=== PATIENT | female | born 1935 | race Caucasian/White ===

== ENCOUNTER 2019-04-19 15:51 | Inpatient (IN) | payer MEDICARE ==
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
[2019-04-19 16:49] LABS: URINE SOURCE CLEAN C
[2019-04-19 16:56] LABS: URINE BILIRUBIN NEGATIVE (NEGATIVE); URINE BLOOD TRACE (NEGATIVE); URINE GLUCOSE (UA) NEGATIVE (NEGATIVE); URINE KETONE NEGATIVE (NEGATIVE); URINE LEUKOCYTE ESTERASE SMALL (NEGATIVE); URINE MICROSCOPIC INDICATED? YES; URINE NITRATE NEGATIVE (NEGATIVE); URINE PROTEIN NEGATIVE (NEGATIVE); URINE UROBILINOGEN 0.2 E.U./dL (0.2 - 1.0)
[2019-04-19 17:10] LABS: ALB/GLOB RATIO 1.2 (1.0-1.8); ALKALINE PHOSPHATASE 56 U/L (34-104); ANION GAP 12.3 (7.0-16.0); BILIRUBIN,TOTAL 0.3 mg/dL (0.3-1.0); BUN - UREA NITROGEN 19 mg/dL (7-25); CARBON DIOXIDE 23.8 mEq/L (21.0-31.0); CHLORIDE 104 mEq/L (98-107); CHOLESTEROL 188 mg/dL (<200); CREATININE - SERUM 0.9 mg/dL (0.6-1.2); GLUCOSE 96 mg/dL (70-105); HDL -HIGH DENSITY LIPOPROTEIN 37 mg/dL (23-92); POTASSIUM SERUM 4.1 mEq/L (3.5-5.1); SGOT 17 U/L (13-39); SGPT/ALT 9 U/L (7-52); SODIUM SERUM 136 mEq/L (136-145); TOTAL PROTEIN,SERUM 7.3 gm/dL (6.0-8.3); TRIGLYCERIDES 100 mg/dL (<150)
[2019-04-19 17:22] LABS: URINE CLARITY HAZY (CLEAR); URINE COLOR YELLOW
[2019-04-19 17:23] LABS: URINE BACTERIA FEW /hpf (NONE SEEN); URINE EPITHELIAL CELLS FEW /lpf (FEW)
[2019-04-19 17:51] LABS: EOSINOPHILE ABSOLUTE 0.1 Th/cmm (0.1-0.4); LYMPHOCYTE ABSOLUTE 2.2 Th/cmm (1.5-3.0); WHITE BLOOD COUNT 7.9 Th/cmm (4.8-10.8)
[2019-04-19 18:03] LABS: % BASOPHILS 0.6 % (0.0-2.0); % EOSINOPHILS 1.7 % (0.0-5.0); % LYMPHOCYTES 27.8 % (20.0-50.0); % MONOCYTES 6.8 % (2.0-10.0); % NEUTROPHILS 63.1 % (40.0-80.0); HEMATOCRIT 32.7 % (41.0-60); HEMOGLOBIN 11.4 gm/dL (12-16); MEAN CELL VOLUME 89.5 fl (81-100); MEAN CORPUSCULAR HEMOGLOBIN 31.2 pg (27.0-31.0); MEAN CORPUSCULAR HGB CONC 34.9 pg (28.0-36.0); MONOCYTE ABSOLUTE 0.5 Th/cmm (0.3-1.0); NEUTROPHILE ABSOLUTE 5.1 Th/cmm (1.8-8.0); PLATELET COUNT 317 Th/cmm (150-400); RED BLOOD COUNT 3.66 Mil/cmm (3.80-5.20); RED CELL DISTRIBUTION WIDTH 12.2 % (11.5-20.0)
[2019-04-19 19:50] VITALS: BP 134/74
[2019-04-20 06:06] LABS: A1C 5.7 % (4.8-5.6)
--- NOTE | 2019-04-20 14:01 | History & Physical ---
ADMIT DATE: 04/19/2019 CHIEF COMPLAINT: Medical evaluation and clearance, the patient was admitted to inpatient unit. HISTORY OF PRESENT ILLNESS: This is an 84-year-old female with history of hypertension, history of hypercholesterolemia, not on medication. The patient with vertigo, admitted under service of Dr. Garrison. The patient denies chest pain, shortness of breath. 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 PAST MEDICAL HISTORY: As mentioned in history of present illness. PAST SURGICAL HISTORY: Denies surgeries in the past. ALLERGIES: No known drug allergies. MEDICATIONS: Amlodipine, benazepril, gabapentin, lorazepam, meclizine, and Namenda. FAMILY HISTORY: Noncontributory. SOCIAL HISTORY: No smoking, occasional alcohol and intravenous drug use. 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 REVIEW OF SYSTEMS: GENERAL: Complains of not feeling well. HEENT: No blurred vision or pain. LUNGS: No diagnosis of COPD or asthma. HEART: The patient with hypertension. Denies coronary artery disease. ABDOMEN: No nausea, vomiting, or pain. GENITOURINARY: The patient denies increased frequency or dysuria. NEUROLOGIC: No headache, seizure, or syncope. PSYCHIATRIC: Stable. PHYSICAL EXAMINATION: VITAL SIGNS: Blood pressure 137/64, respirations 18, pulse 67, temperature 97.4. GENERAL: Elderly female, appears younger than 84. NECK: Supple. No mass. LUNGS: Equal breath sounds, otherwise clear to auscultation. HEART: Regular rate and rhythm without appreciable murmur. ABDOMEN: Soft, nontender. EXTREMITIES: No clubbing, cyanosis, or edema. NEUROLOGIC: Limited. LABORATORY DATA: WBC 7.8, hemoglobin 11.4, platelets 317. Sodium 136, potassium 4.1, BUN 19, creatinine 0.9. AST and ALT 79 respectively, albumin 4.0. UA, 10 wbc. The patient denies any symptoms of urinary tract infection. ASSESSMENT AND PLAN: Anemia, hypertension, pyuria, history of vertigo, history of hypercholesterolemia. Continue the patient on current antihypertensive medication on a calcium shahida as well as angiotensin converting enzyme inhibitor. Continue on low sodium diet. The patient does not have any indication of urinary tract infection, although on antibiotic. The patient's medical therapy and follow up with her regular physician upon discharge. JOB# [id number]
--- NOTE | 2019-04-20 22:39 | Psychiatric Evaluation ---
DATE OF SERVICE: 04/19/2019 INITIAL EVALUATION MENTAL STATUS EXAM AGE: 84 SEX: Female. PHYSICIAN: Dr. Durham. CHIEF COMPLAINT: The patient is anxious and has altered mental status. HISTORY OF PRESENT ILLNESS: The patient was admitted to the hospital from skilled facility because of altered in her mental status exam. The patient also was irritable and angry. The patient also was not able to follow directions. The patient has history of dementia and the patient is a poor historian. She also unable to give much information except the patient is confused and gets agitated with the questions. PAST PSYCHIATRIC HISTORY: The patient has history of dementia. PAST MEDICAL HISTORY: The patient has a history of urinary tract infection, otherwise essentially no other major medical problems known. SOCIAL HISTORY: The patient lives in an extended care facility. No known alcohol or drug use. ALLERGIES: No known allergies. MENTAL STATUS EXAMINATION: The patient appears her stated age. Anxious. Confused. Unable to answer any of the questions coherently and seems to be confused and irritable. The patient did not answer question regarding hallucinations or delusions or significant suicide or homicide and the patient seems to be preoccupied. The patient is alert, but disoriented to place, person and situation. Impaired immediate, recent and remote memories and she was not even able to tell me her date. Poor insight and poor judgment ASSESSMENT: PRIMARY DIAGNOSIS: Unspecified psychosis. SECONDARY DIAGNOSIS: Dementia, severe, with psychotic features. TREATMENT PLAN: Monitor the patient's behavior and condition closely. We will start individual as well as milieu psychotherapy. We will monitor psychotropic medications. ESTIMATED LENGTH OF STAY: 5-7 days. PATIENT'S STRENGTHS AND WEAKNESSES: The patient's strength is not clear at this time except the patient is restless and is agitated. Weaknesses are ineffective coping and poor judgment. AFTER DISCHARGE PLAN: The patient will return to her facility and outpatient treatment and followup will continue as an outpatient. CRITERIA FOR DISCHARGE: The patient will not be psychotic and will stabilize psychotropic medications and will establish outpatient treatment plans. [facility]# [id number]
--- NOTE | 2019-04-21 12:08 | Internal Medicine Prog Note ---
Internal Medicine Subjective - Subjective Patient seen and examined:: with staff, chart reviewed Patient is:: awake, verbal, interactive, ambulating Per staff patient has:: no adverse event, no episodes of fall, poor appetite, tolerating meds Internal Medicine Objective - Results Result Diagrams: 04/19/19 16:20 04/19/19 16:20 Recent Labs: Laboratory Last Values WBC 7.9 Th/cmm (4.8-10.8) 04/19/19 16:20 RBC 3.66 Mil/cmm (3.80-5.20) L 04/19/19 16:20 Hgb 11.4 gm/dL (12-16) L 04/19/19 16:20 Hct 32.7 % (41.0-60) L 04/19/19 16:20 MCV 89.5 fl (81-100) 04/19/19 16:20 MCH 31.2 pg (27.0-31.0) H 04/19/19 16:20 MCHC Differential 34.9 pg (28.0-36.0) 04/19/19 16:20 RDW 12.2 % (11.5-20.0) 04/19/19 16:20 Plt Count 317 Th/cmm (150-400) 04/19/19 16:20 MPV 8.0 fl 04/19/19 16:20 Neutrophils % 63.1 % (40.0-80.0) 04/19/19 16:20 Lymphocytes % 27.8 % (20.0-50.0) 04/19/19 16:20 Monocytes % 6.8 % (2.0-10.0) 04/19/19 16:20 Eosinophils % 1.7 % (0.0-5.0) 04/19/19 16:20 Basophils % 0.6 % (0.0-2.0) 04/19/19 16:20 Sodium 136 mEq/L (136-145) 04/19/19 16:20 Potassium 4.1 mEq/L (3.5-5.1) 04/19/19 16:20 Chloride 104 mEq/L (98-107) 04/19/19 16:20 Carbon Dioxide 23.8 mEq/L (21.0-31.0) 04/19/19 16:20 Anion Gap 12.3 (7.0-16.0) 04/19/19 16:20 BUN 19 mg/dL (7-25) 04/19/19 16:20 Creatinine 0.9 mg/dL (0.6-1.2) 04/19/19 16:20 Est GFR ( Amer) TNP 04/19/19 16:20 Est GFR (Non-Af Amer) TNP 04/19/19 16:20 BUN/Creatinine Ratio 21.1 04/19/19 16:20 Glucose 96 mg/dL (70-105) 04/19/19 16:20 Calcium 9.0 mg/dL (8.6-10.3) 04/19/19 16:20 Total Bilirubin 0.3 mg/dL (0.3-1.0) 04/19/19 16:20 AST 17 U/L (13-39) 04/19/19 16:20 ALT 9 U/L (7-52) 04/19/19 16:20 Alkaline Phosphatase 56 U/L (34-104) 04/19/19 16:20 Total Protein 7.3 gm/dL (6.0-8.3) 04/19/19 16:20 Albumin 4.0 gm/dL (3.7-5.3) 04/19/19 16:20 Globulin 3.3 gm/dL 04/19/19 16:20 Albumin/Globulin Ratio 1.2 (1.0-1.8) 04/19/19 16:20 Triglycerides 100 mg/dL (<150) 04/19/19 16:20 Cholesterol 188 mg/dL (<200) 04/19/19 16:20 LDL Cholesterol Direct 135 mg/dL (75-193) 04/19/19 16:20 HDL Cholesterol 37 mg/dL (23-92) 04/19/19 16:20 TSH 1.29 uIU/ml (0.34-5.60) 04/19/19 16:20 Urine Source CLEAN C 04/19/19 16:15 Urine Color YELLOW 04/19/19 16:15 Urine Clarity HAZY (CLEAR) 04/19/19 16:15 Urine pH 6.0 (4.6 - 8.0) 04/19/19 16:15 Ur Specific [place] 1.015 (1.005-1.030) 04/19/19 16:15 Urine Protein NEGATIVE mg/dL (NEGATIVE) 04/19/19 16:15 Urine Glucose (UA) NEGATIVE mg/dL (NEGATIVE) 04/19/19 16:15 Urine Ketones NEGATIVE mg/dL (NEGATIVE) 04/19/19 16:15 Urine Blood TRACE (NEGATIVE) 04/19/19 16:15 Urine Nitrate NEGATIVE (NEGATIVE) 04/19/19 16:15 Urine Bilirubin NEGATIVE (NEGATIVE) 04/19/19 16:15 Urine Urobilinogen 0.2 E.U./dL (0.2 - 1.0) 04/19/19 16:15 Ur Leukocyte Esterase SMALL (NEGATIVE) H 04/19/19 16:15 Urine RBC 2-5 /hpf (0-5) 04/19/19 16:15 Urine WBC 6-10 /hpf (0-5) H 04/19/19 16:15 Ur Epithelial Cells FEW /lpf (FEW) 04/19/19 16:15 Urine Bacteria FEW /hpf (NONE SEEN) 04/19/19 16:15 - Physical Exam Vitals and I&O: Vital Signs Temp 98.1 F 04/21/19 06:14 Pulse 79 04/21/19 08:40 Resp 18 04/21/19 07:54 BP 131/71 04/21/19 08:40 Pulse Ox 96 04/21/19 06:14 Intake & Output 04/20/19 04/21/19 04/21/19 18:59 06:59 18:59 Intake Total 1300 120 Balance 1300 120 Intake: Oral 1300 120 Other: # Voids 3 3 # Bowel Movements 0 0 Active Medications: Current Medications Amlodipine Besylate (Norvasc) 5 mg PO DAILY LYNDSAY Stop: 06/19/19 08:59 Last Admin: 04/21/19 08:40 Dose: 5 mg Benazepril HCl (Lotensin) 20 mg PO DAILY LYNDSAY Stop: 06/19/19 08:59 Last Admin: 04/21/19 08:39 Dose: 20 mg Gabapentin (Neurontin) 300 mg PO BID LYNDSAY Stop: 06/19/19 08:59 Last Admin: 04/21/19 08:40 Dose: 300 mg Levofloxacin (Levaquin) 500 mg PO DAILY LYNDSAY Stop: 04/28/19 08:59 Last Admin: 04/21/19 08:39 Dose: 500 mg Lorazepam (Ativan) 1 mg PO Q4HR PRN; Protocol PRN Reason: Anxiety Stop: 06/18/19 19:57 Last Admin: 04/21/19 08:41 Dose: 1 mg Meclizine HCl (Antivert) 25 mg PO TID PRN PRN Reason: Dizziness Stop: 06/18/19 19:57 Memantine (Namenda) 10 mg PO BID LYNDSAY Stop: 06/19/19 08:59 Last Admin: 04/21/19 08:39 Dose: 10 mg Zolpidem Tartrate (Ambien) 5 mg PO HS PRN PRN Reason: Insomnia Stop: 06/18/19 19:52 General: alert HEENT: NC/AT, PERRLA, EOMI Neck: Supple, No JVD, No thyromegaly, No LAD Lungs: CTAB Cardiovascular: RRR, Normal S1, Normal S2, with murmur Abdomen: soft, non-tender, thin, non-distended, positive bowel sound Extremities: excoriation Internal Medicine Assmt/Plan - Assessment Assessment: ASSESSMENT AND PLAN: Anemia, hypertension, pyuria, history of vertigo, history of hypercholesterolemia. - Plan Plan: PLAN: Continue the patient on current antihypertensive medication on a calcium shahida as well as angiotensin converting enzyme inhibitor. Continue on low sodium diet. The patient does not have any indication of urinary tract infection, although on antibiotic. The patient's medical therapy and follow up with her regular physician upon discharge.
--- NOTE | 2019-04-22 02:04 | Progress Notes ---
DATE: 04/21/2019 SUBJECTIVE: The patient was seen, remains anxious, forgetful, still asking the same questions over and over again, keeps coming to the nursing station. The patient, on the other hand, is taking her medication. Sleep and appetite are fair. MENTAL STATUS EXAM: Speech fluent, not pressured. Affect appears to be anxious, somewhat depressed. No other visual hallucinations. She is oriented to person, not oriented to time or situation. PLAN: We will continue stabilization, continue hospitalization and monitor closely. [facility]# [id number]
--- NOTE | 2019-04-22 13:24 | Internal Medicine Prog Note ---
Internal Medicine Subjective - Subjective Patient seen and examined:: with staff, chart reviewed Patient is:: awake, verbal, interactive, ambulating Per staff patient has:: no adverse event, no episodes of fall, poor appetite, tolerating meds Internal Medicine Objective - Results Result Diagrams: 04/19/19 16:20 04/19/19 16:20 Recent Labs: Laboratory Last Values WBC 7.9 Th/cmm (4.8-10.8) 04/19/19 16:20 RBC 3.66 Mil/cmm (3.80-5.20) L 04/19/19 16:20 Hgb 11.4 gm/dL (12-16) L 04/19/19 16:20 Hct 32.7 % (41.0-60) L 04/19/19 16:20 MCV 89.5 fl (81-100) 04/19/19 16:20 MCH 31.2 pg (27.0-31.0) H 04/19/19 16:20 MCHC Differential 34.9 pg (28.0-36.0) 04/19/19 16:20 RDW 12.2 % (11.5-20.0) 04/19/19 16:20 Plt Count 317 Th/cmm (150-400) 04/19/19 16:20 MPV 8.0 fl 04/19/19 16:20 Neutrophils % 63.1 % (40.0-80.0) 04/19/19 16:20 Lymphocytes % 27.8 % (20.0-50.0) 04/19/19 16:20 Monocytes % 6.8 % (2.0-10.0) 04/19/19 16:20 Eosinophils % 1.7 % (0.0-5.0) 04/19/19 16:20 Basophils % 0.6 % (0.0-2.0) 04/19/19 16:20 Sodium 136 mEq/L (136-145) 04/19/19 16:20 Potassium 4.1 mEq/L (3.5-5.1) 04/19/19 16:20 Chloride 104 mEq/L (98-107) 04/19/19 16:20 Carbon Dioxide 23.8 mEq/L (21.0-31.0) 04/19/19 16:20 Anion Gap 12.3 (7.0-16.0) 04/19/19 16:20 BUN 19 mg/dL (7-25) 04/19/19 16:20 Creatinine 0.9 mg/dL (0.6-1.2) 04/19/19 16:20 Est GFR ( Amer) TNP 04/19/19 16:20 Est GFR (Non-Af Amer) TNP 04/19/19 16:20 BUN/Creatinine Ratio 21.1 04/19/19 16:20 Glucose 96 mg/dL (70-105) 04/19/19 16:20 Calcium 9.0 mg/dL (8.6-10.3) 04/19/19 16:20 Total Bilirubin 0.3 mg/dL (0.3-1.0) 04/19/19 16:20 AST 17 U/L (13-39) 04/19/19 16:20 ALT 9 U/L (7-52) 04/19/19 16:20 Alkaline Phosphatase 56 U/L (34-104) 04/19/19 16:20 Total Protein 7.3 gm/dL (6.0-8.3) 04/19/19 16:20 Albumin 4.0 gm/dL (3.7-5.3) 04/19/19 16:20 Globulin 3.3 gm/dL 04/19/19 16:20 Albumin/Globulin Ratio 1.2 (1.0-1.8) 04/19/19 16:20 Triglycerides 100 mg/dL (<150) 04/19/19 16:20 Cholesterol 188 mg/dL (<200) 04/19/19 16:20 LDL Cholesterol Direct 135 mg/dL (75-193) 04/19/19 16:20 HDL Cholesterol 37 mg/dL (23-92) 04/19/19 16:20 TSH 1.29 uIU/ml (0.34-5.60) 04/19/19 16:20 Urine Source CLEAN C 04/19/19 16:15 Urine Color YELLOW 04/19/19 16:15 Urine Clarity HAZY (CLEAR) 04/19/19 16:15 Urine pH 6.0 (4.6 - 8.0) 04/19/19 16:15 Ur Specific [place] 1.015 (1.005-1.030) 04/19/19 16:15 Urine Protein NEGATIVE mg/dL (NEGATIVE) 04/19/19 16:15 Urine Glucose (UA) NEGATIVE mg/dL (NEGATIVE) 04/19/19 16:15 Urine Ketones NEGATIVE mg/dL (NEGATIVE) 04/19/19 16:15 Urine Blood TRACE (NEGATIVE) 04/19/19 16:15 Urine Nitrate NEGATIVE (NEGATIVE) 04/19/19 16:15 Urine Bilirubin NEGATIVE (NEGATIVE) 04/19/19 16:15 Urine Urobilinogen 0.2 E.U./dL (0.2 - 1.0) 04/19/19 16:15 Ur Leukocyte Esterase SMALL (NEGATIVE) H 04/19/19 16:15 Urine RBC 2-5 /hpf (0-5) 04/19/19 16:15 Urine WBC 6-10 /hpf (0-5) H 04/19/19 16:15 Ur Epithelial Cells FEW /lpf (FEW) 04/19/19 16:15 Urine Bacteria FEW /hpf (NONE SEEN) 04/19/19 16:15 - Physical Exam Vitals and I&O: Vital Signs Temp 99.4 F 04/22/19 06:10 Pulse 70 04/22/19 09:16 Resp 18 04/22/19 08:00 BP 120/66 04/22/19 09:16 Pulse Ox 97 04/22/19 06:10 Intake & Output 04/21/19 04/22/19 04/22/19 18:59 06:59 18:59 Intake Total 120 Balance 120 Intake: Oral 120 Other: # Voids 2 # Bowel Movements 0 Active Medications: Current Medications Amlodipine Besylate (Norvasc) 5 mg PO DAILY LYNDSAY Stop: 06/19/19 08:59 Last Admin: 04/22/19 09:15 Dose: 5 mg Benazepril HCl (Lotensin) 20 mg PO DAILY LYNDSAY Stop: 06/19/19 08:59 Last Admin: 04/22/19 09:16 Dose: 20 mg Gabapentin (Neurontin) 300 mg PO BID LYNDSAY Stop: 06/19/19 08:59 Last Admin: 04/22/19 09:15 Dose: 300 mg Levofloxacin (Levaquin) 500 mg PO DAILY LYNDSAY Stop: 04/26/19 08:59 Last Admin: 04/22/19 09:15 Dose: 500 mg Lorazepam (Ativan) 1 mg PO Q4HR PRN; Protocol PRN Reason: Anxiety Stop: 06/18/19 19:57 Last Admin: 04/21/19 16:44 Dose: 1 mg Meclizine HCl (Antivert) 25 mg PO TID PRN PRN Reason: Dizziness Stop: 06/18/19 19:57 Memantine (Namenda) 10 mg PO BID LYNDSAY Stop: 06/19/19 08:59 Last Admin: 04/22/19 09:14 Dose: 10 mg Zolpidem Tartrate (Ambien) 5 mg PO HS PRN PRN Reason: Insomnia Stop: 06/18/19 19:52 General: alert HEENT: NC/AT, PERRLA, EOMI Neck: Supple, No JVD, No thyromegaly, No LAD Lungs: CTAB Cardiovascular: RRR, Normal S1, Normal S2, with murmur Abdomen: soft, non-tender, thin, non-distended, positive bowel sound Extremities: excoriation Internal Medicine Assmt/Plan - Assessment Assessment: ASSESSMENT AND PLAN: Anemia, hypertension, pyuria, history of vertigo, history of hypercholesterolemia. - Plan Plan: PLAN: Continue the patient on current antihypertensive medication on a calcium shahida as well as angiotensin converting enzyme inhibitor. Continue on low sodium diet. The patient does not have any indication of urinary tract infection, although on antibiotic. The patient's medical therapy and follow up with her regular physician upon discharge.
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
--- NOTE | 2019-04-22 20:49 | Progress Notes ---
DATE: SUBJECTIVE: Chart was reviewed and the patient interviewed. Also discussed the patient's condition with the staff and reviewed records and labs. The patient seems to be calmer. The patient is less irritable and less agitated. Slightly easier to redirect her. She also still seems to be preoccupied and responding, but no major behavioral problems. ASSESSMENT: The patient seems slightly less psychotic and less agitated. TREATMENT PLAN: Continue to monitor behavior and condition closely. Also, continue adjusting psychotropic medications and work on behavioral modification. [facility]# [id number]
--- NOTE | 2019-04-23 13:56 | Internal Medicine Prog Note ---
Internal Medicine Subjective - Subjective Service Date: 04/23/19 Patient is:: awake, verbal, interactive, ambulating Per staff patient has:: no adverse event, no episodes of fall, poor appetite, tolerating meds Internal Medicine Objective - Results Result Diagrams: 04/19/19 16:20 04/19/19 16:20 Recent Labs: Laboratory Last Values WBC 7.9 Th/cmm (4.8-10.8) 04/19/19 16:20 RBC 3.66 Mil/cmm (3.80-5.20) L 04/19/19 16:20 Hgb 11.4 gm/dL (12-16) L 04/19/19 16:20 Hct 32.7 % (41.0-60) L 04/19/19 16:20 MCV 89.5 fl (81-100) 04/19/19 16:20 MCH 31.2 pg (27.0-31.0) H 04/19/19 16:20 MCHC Differential 34.9 pg (28.0-36.0) 04/19/19 16:20 RDW 12.2 % (11.5-20.0) 04/19/19 16:20 Plt Count 317 Th/cmm (150-400) 04/19/19 16:20 MPV 8.0 fl 04/19/19 16:20 Neutrophils % 63.1 % (40.0-80.0) 04/19/19 16:20 Lymphocytes % 27.8 % (20.0-50.0) 04/19/19 16:20 Monocytes % 6.8 % (2.0-10.0) 04/19/19 16:20 Eosinophils % 1.7 % (0.0-5.0) 04/19/19 16:20 Basophils % 0.6 % (0.0-2.0) 04/19/19 16:20 Sodium 136 mEq/L (136-145) 04/19/19 16:20 Potassium 4.1 mEq/L (3.5-5.1) 04/19/19 16:20 Chloride 104 mEq/L (98-107) 04/19/19 16:20 Carbon Dioxide 23.8 mEq/L (21.0-31.0) 04/19/19 16:20 Anion Gap 12.3 (7.0-16.0) 04/19/19 16:20 BUN 19 mg/dL (7-25) 04/19/19 16:20 Creatinine 0.9 mg/dL (0.6-1.2) 04/19/19 16:20 Est GFR ( Amer) TNP 04/19/19 16:20 Est GFR (Non-Af Amer) TNP 04/19/19 16:20 BUN/Creatinine Ratio 21.1 04/19/19 16:20 Glucose 96 mg/dL (70-105) 04/19/19 16:20 Calcium 9.0 mg/dL (8.6-10.3) 04/19/19 16:20 Total Bilirubin 0.3 mg/dL (0.3-1.0) 04/19/19 16:20 AST 17 U/L (13-39) 04/19/19 16:20 ALT 9 U/L (7-52) 04/19/19 16:20 Alkaline Phosphatase 56 U/L (34-104) 04/19/19 16:20 Total Protein 7.3 gm/dL (6.0-8.3) 04/19/19 16:20 Albumin 4.0 gm/dL (3.7-5.3) 04/19/19 16:20 Globulin 3.3 gm/dL 04/19/19 16:20 Albumin/Globulin Ratio 1.2 (1.0-1.8) 04/19/19 16:20 Triglycerides 100 mg/dL (<150) 04/19/19 16:20 Cholesterol 188 mg/dL (<200) 04/19/19 16:20 LDL Cholesterol Direct 135 mg/dL (75-193) 04/19/19 16:20 HDL Cholesterol 37 mg/dL (23-92) 04/19/19 16:20 TSH 1.29 uIU/ml (0.34-5.60) 04/19/19 16:20 Urine Source CLEAN C 04/19/19 16:15 Urine Color YELLOW 04/19/19 16:15 Urine Clarity HAZY (CLEAR) 04/19/19 16:15 Urine pH 6.0 (4.6 - 8.0) 04/19/19 16:15 Ur Specific [place] 1.015 (1.005-1.030) 04/19/19 16:15 Urine Protein NEGATIVE mg/dL (NEGATIVE) 04/19/19 16:15 Urine Glucose (UA) NEGATIVE mg/dL (NEGATIVE) 04/19/19 16:15 Urine Ketones NEGATIVE mg/dL (NEGATIVE) 04/19/19 16:15 Urine Blood TRACE (NEGATIVE) 04/19/19 16:15 Urine Nitrate NEGATIVE (NEGATIVE) 04/19/19 16:15 Urine Bilirubin NEGATIVE (NEGATIVE) 04/19/19 16:15 Urine Urobilinogen 0.2 E.U./dL (0.2 - 1.0) 04/19/19 16:15 Ur Leukocyte Esterase SMALL (NEGATIVE) H 04/19/19 16:15 Urine RBC 2-5 /hpf (0-5) 04/19/19 16:15 Urine WBC 6-10 /hpf (0-5) H 04/19/19 16:15 Ur Epithelial Cells FEW /lpf (FEW) 04/19/19 16:15 Urine Bacteria FEW /hpf (NONE SEEN) 04/19/19 16:15 RPR NONREACTIVE (NONREACTIVE) 04/19/19 16:20 - Physical Exam Vitals and I&O: Vital Signs Temp 98.7 F 04/23/19 06:20 Pulse 75 04/23/19 09:10 Resp 18 04/23/19 08:00 BP 104/77 04/23/19 09:10 Pulse Ox 99 04/23/19 06:20 Intake & Output 04/22/19 04/23/19 04/23/19 18:59 06:59 18:59 Intake Total 900 120 Balance 900 120 Intake: Oral 900 120 Other: # Voids 3 3 # Bowel Movements 1 0 Active Medications: Current Medications Amlodipine Besylate (Norvasc) 5 mg PO DAILY LYNDSAY Stop: 06/19/19 08:59 Last Admin: 04/23/19 09:10 Dose: 5 mg Benazepril HCl (Lotensin) 20 mg PO DAILY LYNDSAY Stop: 06/19/19 08:59 Last Admin: 04/23/19 09:09 Dose: 20 mg Gabapentin (Neurontin) 300 mg PO BID LYNDSAY Stop: 06/19/19 08:59 Last Admin: 04/23/19 09:08 Dose: 300 mg Levofloxacin (Levaquin) 500 mg PO DAILY LYNDSAY Stop: 04/26/19 08:59 Last Admin: 04/23/19 09:09 Dose: 500 mg Lorazepam (Ativan) 1 mg PO Q4HR PRN; Protocol PRN Reason: Anxiety Stop: 06/18/19 19:57 Last Admin: 04/21/19 16:44 Dose: 1 mg Meclizine HCl (Antivert) 25 mg PO TID PRN PRN Reason: Dizziness Stop: 06/18/19 19:57 Memantine (Namenda) 10 mg PO BID LYNDSAY Stop: 06/19/19 08:59 Last Admin: 04/23/19 09:09 Dose: 10 mg Zolpidem Tartrate (Ambien) 5 mg PO HS PRN PRN Reason: Insomnia Stop: 06/18/19 19:52 General: alert HEENT: NC/AT, PERRLA, EOMI Neck: Supple, No JVD, No thyromegaly, No LAD Lungs: CTAB Cardiovascular: RRR, Normal S1, Normal S2, with murmur Abdomen: soft, non-tender, thin, non-distended, positive bowel sound Extremities: excoriation Internal Medicine Assmt/Plan - Assessment Assessment: Anemia, hypertension, pyuria, history of vertigo, history of hypercholesterolemia. . - Plan Plan: Continue the patient on current antihypertensive medication on a calcium shahida as well as angiotensin converting enzyme inhibitor. Continue on low sodium diet. The patient does not have any indication of urinary tract infection, although on antibiotic. The patient's medical therapy and follow up with her regular physician upon discharge
--- NOTE | 2019-04-23 21:30 | Progress Notes ---
DATE: 04/23/2019 PSYCHOLOGY PROGRESS NOTE SUBJECTIVE: The patient is seen and is interviewed. Case is discussed with staff. The patient presents as less agitated and less irritable today. The patient continues to seem to be preoccupied and is continuing to ask questions about when she will be discharged and the reasons for her hospitalization. Staff reports no major behavioral problems. OBJECTIVE: Mood is stable. Affect is constricted. Thought process shows to be confused. The patient denied any hallucinations or delusions. There is some preoccupation with internal stimuli. The patient is denying any auditory hallucinations or voices. The staff reports no major problems and the patient is compliant with her care. ASSESSMENT AND PLAN: The patient seems to be less agitated. This telegraphic typewriter operator chief provided positive reinforcement for the patient to become compliant and stay compliant with her care and treatment. We provided reality orientation, differentiation and integration. We provided coping strategies for phase of life issues. Follow up in 2 days to continue the present treatment is contingent on the patient's admission on the unit and if psychology services are continued to be ordered. JOB# [id number] HERMES
--- NOTE | 2019-04-24 10:35 | Internal Medicine Prog Note ---
Internal Medicine Subjective - Subjective Service Date: 04/24/19 Patient is:: awake, verbal, interactive, ambulating Per staff patient has:: no adverse event, no episodes of fall, poor appetite, tolerating meds Internal Medicine Objective - Results Result Diagrams: 04/19/19 16:20 04/19/19 16:20 Recent Labs: Laboratory Last Values WBC 7.9 Th/cmm (4.8-10.8) 04/19/19 16:20 RBC 3.66 Mil/cmm (3.80-5.20) L 04/19/19 16:20 Hgb 11.4 gm/dL (12-16) L 04/19/19 16:20 Hct 32.7 % (41.0-60) L 04/19/19 16:20 MCV 89.5 fl (81-100) 04/19/19 16:20 MCH 31.2 pg (27.0-31.0) H 04/19/19 16:20 MCHC Differential 34.9 pg (28.0-36.0) 04/19/19 16:20 RDW 12.2 % (11.5-20.0) 04/19/19 16:20 Plt Count 317 Th/cmm (150-400) 04/19/19 16:20 MPV 8.0 fl 04/19/19 16:20 Neutrophils % 63.1 % (40.0-80.0) 04/19/19 16:20 Lymphocytes % 27.8 % (20.0-50.0) 04/19/19 16:20 Monocytes % 6.8 % (2.0-10.0) 04/19/19 16:20 Eosinophils % 1.7 % (0.0-5.0) 04/19/19 16:20 Basophils % 0.6 % (0.0-2.0) 04/19/19 16:20 Sodium 136 mEq/L (136-145) 04/19/19 16:20 Potassium 4.1 mEq/L (3.5-5.1) 04/19/19 16:20 Chloride 104 mEq/L (98-107) 04/19/19 16:20 Carbon Dioxide 23.8 mEq/L (21.0-31.0) 04/19/19 16:20 Anion Gap 12.3 (7.0-16.0) 04/19/19 16:20 BUN 19 mg/dL (7-25) 04/19/19 16:20 Creatinine 0.9 mg/dL (0.6-1.2) 04/19/19 16:20 Est GFR ( Amer) TNP 04/19/19 16:20 Est GFR (Non-Af Amer) TNP 04/19/19 16:20 BUN/Creatinine Ratio 21.1 04/19/19 16:20 Glucose 96 mg/dL (70-105) 04/19/19 16:20 Calcium 9.0 mg/dL (8.6-10.3) 04/19/19 16:20 Total Bilirubin 0.3 mg/dL (0.3-1.0) 04/19/19 16:20 AST 17 U/L (13-39) 04/19/19 16:20 ALT 9 U/L (7-52) 04/19/19 16:20 Alkaline Phosphatase 56 U/L (34-104) 04/19/19 16:20 Total Protein 7.3 gm/dL (6.0-8.3) 04/19/19 16:20 Albumin 4.0 gm/dL (3.7-5.3) 04/19/19 16:20 Globulin 3.3 gm/dL 04/19/19 16:20 Albumin/Globulin Ratio 1.2 (1.0-1.8) 04/19/19 16:20 Triglycerides 100 mg/dL (<150) 04/19/19 16:20 Cholesterol 188 mg/dL (<200) 04/19/19 16:20 LDL Cholesterol Direct 135 mg/dL (75-193) 04/19/19 16:20 HDL Cholesterol 37 mg/dL (23-92) 04/19/19 16:20 TSH 1.29 uIU/ml (0.34-5.60) 04/19/19 16:20 Urine Source CLEAN C 04/19/19 16:15 Urine Color YELLOW 04/19/19 16:15 Urine Clarity HAZY (CLEAR) 04/19/19 16:15 Urine pH 6.0 (4.6 - 8.0) 04/19/19 16:15 Ur Specific [place] 1.015 (1.005-1.030) 04/19/19 16:15 Urine Protein NEGATIVE mg/dL (NEGATIVE) 04/19/19 16:15 Urine Glucose (UA) NEGATIVE mg/dL (NEGATIVE) 04/19/19 16:15 Urine Ketones NEGATIVE mg/dL (NEGATIVE) 04/19/19 16:15 Urine Blood TRACE (NEGATIVE) 04/19/19 16:15 Urine Nitrate NEGATIVE (NEGATIVE) 04/19/19 16:15 Urine Bilirubin NEGATIVE (NEGATIVE) 04/19/19 16:15 Urine Urobilinogen 0.2 E.U./dL (0.2 - 1.0) 04/19/19 16:15 Ur Leukocyte Esterase SMALL (NEGATIVE) H 04/19/19 16:15 Urine RBC 2-5 /hpf (0-5) 04/19/19 16:15 Urine WBC 6-10 /hpf (0-5) H 04/19/19 16:15 Ur Epithelial Cells FEW /lpf (FEW) 04/19/19 16:15 Urine Bacteria FEW /hpf (NONE SEEN) 04/19/19 16:15 RPR NONREACTIVE (NONREACTIVE) 04/19/19 16:20 - Physical Exam Vitals and I&O: Vital Signs Temp 98.2 F 04/24/19 05:21 Pulse 77 04/24/19 09:00 Resp 20 04/24/19 08:00 BP 140/78 04/24/19 09:00 Pulse Ox 97 04/24/19 05:21 Intake & Output 04/23/19 04/24/19 04/24/19 18:59 06:59 18:59 Intake Total 950 240 Balance 950 240 Intake: Oral 950 240 Other: # Voids 4 2 # Bowel Movements 1 Active Medications: Current Medications Amlodipine Besylate (Norvasc) 5 mg PO DAILY LYNDSAY Stop: 06/19/19 08:59 Last Admin: 04/24/19 09:00 Dose: 5 mg Benazepril HCl (Lotensin) 20 mg PO DAILY LYNDSAY Stop: 06/19/19 08:59 Last Admin: 04/24/19 09:00 Dose: 20 mg Gabapentin (Neurontin) 300 mg PO BID LYNDSAY Stop: 06/19/19 08:59 Last Admin: 04/24/19 09:01 Dose: 300 mg Levofloxacin (Levaquin) 500 mg PO DAILY LYNDSAY Stop: 04/26/19 08:59 Last Admin: 04/24/19 09:01 Dose: 500 mg Lorazepam (Ativan) 1 mg PO Q4HR PRN; Protocol PRN Reason: Anxiety Stop: 06/18/19 19:57 Last Admin: 04/21/19 16:44 Dose: 1 mg Meclizine HCl (Antivert) 25 mg PO TID PRN PRN Reason: Dizziness Stop: 06/18/19 19:57 Memantine (Namenda) 10 mg PO BID LYNDSAY Stop: 06/19/19 08:59 Last Admin: 04/24/19 09:00 Dose: 10 mg Zolpidem Tartrate (Ambien) 5 mg PO HS PRN PRN Reason: Insomnia Stop: 06/18/19 19:52 General: alert HEENT: NC/AT, PERRLA, EOMI Neck: Supple, No JVD, No thyromegaly, No LAD Lungs: CTAB Cardiovascular: RRR, Normal S1, Normal S2, with murmur Abdomen: soft, non-tender, thin, non-distended, positive bowel sound Extremities: excoriation Internal Medicine Assmt/Plan - Assessment Assessment: Anemia, hypertension, pyuria, history of vertigo, history of hypercholesterolemia. . - Plan Plan: Continue the patient on current antihypertensive medication on a calcium shahida as well as angiotensin converting enzyme inhibitor. Continue on low sodium diet. The patient does not have any indication of urinary tract infection, although on antibiotic. The patient's medical therapy and follow up with her regular physician upon discharge
--- NOTE | 2019-04-24 14:27 | Progress Notes ---
DATE: 04/24/2019 SUBJECTIVE: Staff was spoken to. The patient is interviewed. Mood is noted to be irritable. Affect is constricted. The patient's insight and judgment are noted to be still impaired. Impulse control is noted to be limited. 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 The patient has been having difficult time to cope with the stress. Insight and judgment at this time are noted to be impaired. Impulse control is noted to be limited. The patient is getting easily angry and upset and is stating that she has been living in her own apartment and she needs to go back. As per the information obtained, the patient was living in an extended care facility prior to the hospitalization. ASSESSMENT: The patient is still having short-term as well as long-term memory problems and the patient is getting easily upset. PLAN: To continue the patient with the supportive therapy and followup. [facility]# [id number]
--- NOTE | 2019-04-25 11:06 | Internal Medicine Prog Note ---
Internal Medicine Subjective - Subjective Service Date: 04/25/19 Patient is:: awake, verbal, interactive, ambulating Per staff patient has:: no adverse event, no episodes of fall, poor appetite, tolerating meds Internal Medicine Objective - Results Result Diagrams: 04/19/19 16:20 04/19/19 16:20 Recent Labs: Laboratory Last Values WBC 7.9 Th/cmm (4.8-10.8) 04/19/19 16:20 RBC 3.66 Mil/cmm (3.80-5.20) L 04/19/19 16:20 Hgb 11.4 gm/dL (12-16) L 04/19/19 16:20 Hct 32.7 % (41.0-60) L 04/19/19 16:20 MCV 89.5 fl (81-100) 04/19/19 16:20 MCH 31.2 pg (27.0-31.0) H 04/19/19 16:20 MCHC Differential 34.9 pg (28.0-36.0) 04/19/19 16:20 RDW 12.2 % (11.5-20.0) 04/19/19 16:20 Plt Count 317 Th/cmm (150-400) 04/19/19 16:20 MPV 8.0 fl 04/19/19 16:20 Neutrophils % 63.1 % (40.0-80.0) 04/19/19 16:20 Lymphocytes % 27.8 % (20.0-50.0) 04/19/19 16:20 Monocytes % 6.8 % (2.0-10.0) 04/19/19 16:20 Eosinophils % 1.7 % (0.0-5.0) 04/19/19 16:20 Basophils % 0.6 % (0.0-2.0) 04/19/19 16:20 Sodium 136 mEq/L (136-145) 04/19/19 16:20 Potassium 4.1 mEq/L (3.5-5.1) 04/19/19 16:20 Chloride 104 mEq/L (98-107) 04/19/19 16:20 Carbon Dioxide 23.8 mEq/L (21.0-31.0) 04/19/19 16:20 Anion Gap 12.3 (7.0-16.0) 04/19/19 16:20 BUN 19 mg/dL (7-25) 04/19/19 16:20 Creatinine 0.9 mg/dL (0.6-1.2) 04/19/19 16:20 Est GFR ( Amer) TNP 04/19/19 16:20 Est GFR (Non-Af Amer) TNP 04/19/19 16:20 BUN/Creatinine Ratio 21.1 04/19/19 16:20 Glucose 96 mg/dL (70-105) 04/19/19 16:20 Calcium 9.0 mg/dL (8.6-10.3) 04/19/19 16:20 Total Bilirubin 0.3 mg/dL (0.3-1.0) 04/19/19 16:20 AST 17 U/L (13-39) 04/19/19 16:20 ALT 9 U/L (7-52) 04/19/19 16:20 Alkaline Phosphatase 56 U/L (34-104) 04/19/19 16:20 Total Protein 7.3 gm/dL (6.0-8.3) 04/19/19 16:20 Albumin 4.0 gm/dL (3.7-5.3) 04/19/19 16:20 Globulin 3.3 gm/dL 04/19/19 16:20 Albumin/Globulin Ratio 1.2 (1.0-1.8) 04/19/19 16:20 Triglycerides 100 mg/dL (<150) 04/19/19 16:20 Cholesterol 188 mg/dL (<200) 04/19/19 16:20 LDL Cholesterol Direct 135 mg/dL (75-193) 04/19/19 16:20 HDL Cholesterol 37 mg/dL (23-92) 04/19/19 16:20 TSH 1.29 uIU/ml (0.34-5.60) 04/19/19 16:20 Urine Source CLEAN C 04/19/19 16:15 Urine Color YELLOW 04/19/19 16:15 Urine Clarity HAZY (CLEAR) 04/19/19 16:15 Urine pH 6.0 (4.6 - 8.0) 04/19/19 16:15 Ur Specific [place] 1.015 (1.005-1.030) 04/19/19 16:15 Urine Protein NEGATIVE mg/dL (NEGATIVE) 04/19/19 16:15 Urine Glucose (UA) NEGATIVE mg/dL (NEGATIVE) 04/19/19 16:15 Urine Ketones NEGATIVE mg/dL (NEGATIVE) 04/19/19 16:15 Urine Blood TRACE (NEGATIVE) 04/19/19 16:15 Urine Nitrate NEGATIVE (NEGATIVE) 04/19/19 16:15 Urine Bilirubin NEGATIVE (NEGATIVE) 04/19/19 16:15 Urine Urobilinogen 0.2 E.U./dL (0.2 - 1.0) 04/19/19 16:15 Ur Leukocyte Esterase SMALL (NEGATIVE) H 04/19/19 16:15 Urine RBC 2-5 /hpf (0-5) 04/19/19 16:15 Urine WBC 6-10 /hpf (0-5) H 04/19/19 16:15 Ur Epithelial Cells FEW /lpf (FEW) 04/19/19 16:15 Urine Bacteria FEW /hpf (NONE SEEN) 04/19/19 16:15 RPR NONREACTIVE (NONREACTIVE) 04/19/19 16:20 - Physical Exam Vitals and I&O: Vital Signs Temp 98.2 F 04/25/19 06:44 Pulse 78 04/25/19 08:28 Resp 18 04/25/19 08:00 BP 136/73 04/25/19 08:28 Pulse Ox 96 04/25/19 06:44 Intake & Output 04/24/19 04/25/19 04/25/19 18:59 06:59 18:59 Intake Total 120 Balance 120 Intake: Oral 120 Other: # Voids 3 # Bowel Movements 0 Active Medications: Current Medications Amlodipine Besylate (Norvasc) 5 mg PO DAILY LYNDSAY Stop: 06/19/19 08:59 Last Admin: 04/25/19 08:27 Dose: 5 mg Benazepril HCl (Lotensin) 20 mg PO DAILY LYNDSAY Stop: 06/19/19 08:59 Last Admin: 04/25/19 08:28 Dose: 20 mg Donepezil HCl (Aricept) 5 mg PO DAILY LYNDSAY Stop: 06/25/19 08:59 Gabapentin (Neurontin) 300 mg PO BID LYNDSAY Stop: 06/19/19 08:59 Last Admin: 04/25/19 08:24 Dose: 300 mg Levofloxacin (Levaquin) 500 mg PO DAILY LYNDSAY Stop: 04/26/19 08:59 Last Admin: 04/25/19 08:24 Dose: 500 mg Lorazepam (Ativan) 1 mg PO Q4HR PRN; Protocol PRN Reason: Anxiety Stop: 06/18/19 19:57 Last Admin: 04/21/19 16:44 Dose: 1 mg Meclizine HCl (Antivert) 25 mg PO TID PRN PRN Reason: Dizziness Stop: 06/18/19 19:57 Memantine (Namenda) 5 mg PO BID LYNDSAY Stop: 06/24/19 16:59 Zolpidem Tartrate (Ambien) 5 mg PO HS PRN PRN Reason: Insomnia Stop: 06/18/19 19:52 General: alert HEENT: NC/AT, PERRLA, EOMI Neck: Supple, No JVD, No thyromegaly, No LAD Lungs: CTAB Cardiovascular: RRR, Normal S1, Normal S2, with murmur Abdomen: soft, non-tender, thin, non-distended, positive bowel sound Extremities: excoriation Internal Medicine Assmt/Plan - Assessment Assessment: Anemia, hypertension, pyuria, history of vertigo, history of hypercholesterolemia. . - Plan Plan: Continue the patient on current antihypertensive medication on a calcium shahida as well as angiotensin converting enzyme inhibitor. Continue on low sodium diet. The patient does not have any indication of urinary tract infection, although on antibiotic. The patient's medical therapy and follow up with her regular physician upon discharge
--- NOTE | 2019-04-25 13:16 | Progress Notes ---
DATE: 04/25/2019 SUBJECTIVE: Staff was spoken to. The patient is interviewed. Mood is noted to be irritable. Affect is constricted. The patient's insight and judgment are noted to be still impaired. Impulse control is noted to be limited. Coping skills are noted to be limited. The patient is stating there is a mistake and she states that she should not been here and she needs to be in her own place because the patient has been having difficult time to cope with the stress. Staff noticing that the patient has been getting easily agitated and has been getting easily frustrated. The patient is having short-term memory deficits. 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 The patient at this time has been getting easily agitated. ASSESSMENT: The patient is still demented and getting agitated. PLAN: To continue the patient with the supportive therapy, encouraged the patient to verbalize the concerns rather than to act out. JOB# [id number]
--- NOTE | 2019-04-25 22:29 | Progress Notes ---
DATE: 04/25/2019 PSYCHOLOGY PROGRESS NOTE SUBJECTIVE: The patient is seen and is spoken with. Case is discussed with staff. The patient continues to present as irritable. The patient is stating that she should not be hospitalized here and is requesting to go home. The patient is easily agitated. 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 The patient is unable to differentiate present day reality from the past. 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 The patient continues to be difficult to redirect. OBJECTIVE: Mood is irritable. Affect is constricted. Thought process shows to be confused. There is some evidence of persecutory delusions present. The patient denied any hallucinations. The patient has been difficult to redirect. Staff reports the patient has been taking her p.o. medications. ASSESSMENT AND PLAN: The patient is agitated. The patient's dementia and psychosis persist. We provided reality orientation, differentiation and integration. We provided de-escalation. We provided motivational enhancement for the patient to stay compliant with her care and treatment. We encouraged the patient to verbalize her concerns and to demonstrate emotional and self-regulation as well as follow through with staff direction. We will follow up in 2 days to continue the present treatment if the patient remains admitted on the unit. JOB# [id number] HERMES
--- NOTE | 2019-04-26 10:48 | Internal Medicine Prog Note ---
Internal Medicine Subjective - Subjective Service Date: 04/26/19 Patient is:: awake, verbal, interactive, ambulating Per staff patient has:: no adverse event, no episodes of fall, poor appetite, tolerating meds Internal Medicine Objective - Results Result Diagrams: 04/19/19 16:20 04/19/19 16:20 Recent Labs: Laboratory Last Values WBC 7.9 Th/cmm (4.8-10.8) 04/19/19 16:20 RBC 3.66 Mil/cmm (3.80-5.20) L 04/19/19 16:20 Hgb 11.4 gm/dL (12-16) L 04/19/19 16:20 Hct 32.7 % (41.0-60) L 04/19/19 16:20 MCV 89.5 fl (81-100) 04/19/19 16:20 MCH 31.2 pg (27.0-31.0) H 04/19/19 16:20 MCHC Differential 34.9 pg (28.0-36.0) 04/19/19 16:20 RDW 12.2 % (11.5-20.0) 04/19/19 16:20 Plt Count 317 Th/cmm (150-400) 04/19/19 16:20 MPV 8.0 fl 04/19/19 16:20 Neutrophils % 63.1 % (40.0-80.0) 04/19/19 16:20 Lymphocytes % 27.8 % (20.0-50.0) 04/19/19 16:20 Monocytes % 6.8 % (2.0-10.0) 04/19/19 16:20 Eosinophils % 1.7 % (0.0-5.0) 04/19/19 16:20 Basophils % 0.6 % (0.0-2.0) 04/19/19 16:20 Sodium 136 mEq/L (136-145) 04/19/19 16:20 Potassium 4.1 mEq/L (3.5-5.1) 04/19/19 16:20 Chloride 104 mEq/L (98-107) 04/19/19 16:20 Carbon Dioxide 23.8 mEq/L (21.0-31.0) 04/19/19 16:20 Anion Gap 12.3 (7.0-16.0) 04/19/19 16:20 BUN 19 mg/dL (7-25) 04/19/19 16:20 Creatinine 0.9 mg/dL (0.6-1.2) 04/19/19 16:20 Est GFR ( Amer) TNP 04/19/19 16:20 Est GFR (Non-Af Amer) TNP 04/19/19 16:20 BUN/Creatinine Ratio 21.1 04/19/19 16:20 Glucose 96 mg/dL (70-105) 04/19/19 16:20 Calcium 9.0 mg/dL (8.6-10.3) 04/19/19 16:20 Total Bilirubin 0.3 mg/dL (0.3-1.0) 04/19/19 16:20 AST 17 U/L (13-39) 04/19/19 16:20 ALT 9 U/L (7-52) 04/19/19 16:20 Alkaline Phosphatase 56 U/L (34-104) 04/19/19 16:20 Total Protein 7.3 gm/dL (6.0-8.3) 04/19/19 16:20 Albumin 4.0 gm/dL (3.7-5.3) 04/19/19 16:20 Globulin 3.3 gm/dL 04/19/19 16:20 Albumin/Globulin Ratio 1.2 (1.0-1.8) 04/19/19 16:20 Triglycerides 100 mg/dL (<150) 04/19/19 16:20 Cholesterol 188 mg/dL (<200) 04/19/19 16:20 LDL Cholesterol Direct 135 mg/dL (75-193) 04/19/19 16:20 HDL Cholesterol 37 mg/dL (23-92) 04/19/19 16:20 TSH 1.29 uIU/ml (0.34-5.60) 04/19/19 16:20 Urine Source CLEAN C 04/19/19 16:15 Urine Color YELLOW 04/19/19 16:15 Urine Clarity HAZY (CLEAR) 04/19/19 16:15 Urine pH 6.0 (4.6 - 8.0) 04/19/19 16:15 Ur Specific [place] 1.015 (1.005-1.030) 04/19/19 16:15 Urine Protein NEGATIVE mg/dL (NEGATIVE) 04/19/19 16:15 Urine Glucose (UA) NEGATIVE mg/dL (NEGATIVE) 04/19/19 16:15 Urine Ketones NEGATIVE mg/dL (NEGATIVE) 04/19/19 16:15 Urine Blood TRACE (NEGATIVE) 04/19/19 16:15 Urine Nitrate NEGATIVE (NEGATIVE) 04/19/19 16:15 Urine Bilirubin NEGATIVE (NEGATIVE) 04/19/19 16:15 Urine Urobilinogen 0.2 E.U./dL (0.2 - 1.0) 04/19/19 16:15 Ur Leukocyte Esterase SMALL (NEGATIVE) H 04/19/19 16:15 Urine RBC 2-5 /hpf (0-5) 04/19/19 16:15 Urine WBC 6-10 /hpf (0-5) H 04/19/19 16:15 Ur Epithelial Cells FEW /lpf (FEW) 04/19/19 16:15 Urine Bacteria FEW /hpf (NONE SEEN) 04/19/19 16:15 RPR NONREACTIVE (NONREACTIVE) 04/19/19 16:20 - Physical Exam Vitals and I&O: Vital Signs Temp 98 F 04/26/19 06:38 Pulse 80 04/26/19 08:18 Resp 18 04/26/19 06:38 BP 145/63 04/26/19 08:18 Pulse Ox 97 04/26/19 06:38 Intake & Output 04/25/19 04/26/19 04/26/19 18:59 06:59 18:59 Intake Total 1200 120 Balance 1200 120 Intake: Oral 1200 120 Other: # Voids 2 1 # Bowel Movements 0 0 Active Medications: Current Medications Amlodipine Besylate (Norvasc) 5 mg PO DAILY LYNDSAY Stop: 06/19/19 08:59 Last Admin: 04/26/19 08:18 Dose: 5 mg Benazepril HCl (Lotensin) 20 mg PO DAILY LYNDSAY Stop: 06/19/19 08:59 Last Admin: 04/26/19 08:17 Dose: 20 mg Donepezil HCl (Aricept) 5 mg PO DAILY LYNDSAY Stop: 06/25/19 08:59 Last Admin: 04/26/19 08:17 Dose: 5 mg Gabapentin (Neurontin) 300 mg PO BID LYNDSAY Stop: 06/19/19 08:59 Last Admin: 04/26/19 08:17 Dose: 300 mg Lorazepam (Ativan) 1 mg PO Q4HR PRN; Protocol PRN Reason: Anxiety Stop: 06/18/19 19:57 Last Admin: 04/21/19 16:44 Dose: 1 mg Meclizine HCl (Antivert) 25 mg PO TID PRN PRN Reason: Dizziness Stop: 06/18/19 19:57 Memantine (Namenda) 5 mg PO BID LYNDSAY Stop: 06/24/19 16:59 Last Admin: 04/26/19 08:18 Dose: 5 mg Zolpidem Tartrate (Ambien) 5 mg PO HS PRN PRN Reason: Insomnia Stop: 06/18/19 19:52 General: alert HEENT: NC/AT, PERRLA, EOMI Neck: Supple, No JVD, No thyromegaly, No LAD Lungs: CTAB Cardiovascular: RRR, Normal S1, Normal S2, with murmur Abdomen: soft, non-tender, thin, non-distended, positive bowel sound Extremities: excoriation Internal Medicine Assmt/Plan - Assessment Assessment: Anemia, hypertension, pyuria, history of vertigo, history of hypercholesterolemia. . - Plan Plan: Continue the patient on current antihypertensive medication on a calcium shahida as well as angiotensin converting enzyme inhibitor. Continue on low sodium diet. The patient does not have any indication of urinary tract infection, although on antibiotic. The patient's medical therapy and follow up with her regular physician upon discharge Nutritional Asmnt/Malnutr-PDOC - Dietary Evaluation Malnutrition Findings (Please click <Entered> for more info): Nutritional Asmnt/Malnutrition Start: 04/25/19 12: 43 Text: Status: Complete Freq: Protocol: Document 04/25/19 12:43 ADAM (Rec: 04/25/19 12:54 ADAM [email or web address]) Nutritional Asmnt/Malnutrition Patient General Information Nutritional Screening Low Risk Diagnosis Psychosis NOS Pertinent Medical Hx/Surgical Hx HTN, hypercholesterolemia, vertigo Subjective Information Pt is a 52-year-old female admitted on 04/19 d/t psychosis NOS, medical clearance for [facility]. Pt is currently eating an estimated 72% melas x3 days per Meal/ Nutrition Activity Record. HT: 52 WT: 116 LB (52.73 kg) BMI: 21.22 (Normal) GI: WNL, flat, soft, non- tender BM: 04/24 x1 I/O: 120/Not Noted Skin: WNL, intact Wilian: 21 Diet Order: Regular Estimated Energy Needs: ( Geriatric, CBW) 2562-9928 kcals (25-30 kcals/ kg) 53-63g Pro (1.0-1.2 g/kg) 9673-1707 ml (25-30 ml/kg) Pt is eating 72% of meals Per Meal/Nutrition Activity Record . Dietary is currently providing an estimated 2900 kcals and 130 gm Pro, per Pt PO intake this is providing an estimated 2088 kcals and 94gm Pro to meet 100+% kcal and 100+% Pro needs. Current Diet Order/ Nutrition Support Regular Pertinent Medications Antivert (PRN) Pertinent Labs 04/19: Hgb/Hct 11.4/32.7 Nutritional Hx/Data Height 5 ft 2 in Height (Calculated Centimeters) 157.5 Current Weight (lbs) 116 lb Weight (Calculated Kilograms) 52.6 Weight (Calculated Grams) 00936.7 [place] Body Weight 110 % [place] Body Weight 105 Body Mass Index (BMI) 21.2 Weight Status Approriate GI Symptoms GI Symptoms None Last BM 04/24 x1 Skin Integrity/Comment: Skin: WNL, intact Wilian: 21 Current %PO Fair (50-74%) Estimated Nutritional Goals BEE in Kcals: Using Current wt Calories/Kcals/Kg 25-30 Kcals Calculated 8957-3187 Protein: Using Current wt Protein g/k.0-1.2 Protein Calculated 53-63 Fluid: ml 5435-8838 ml (25-30 ml/kg) Nutritional Problem No current Nutrition Prob Problem No nutrition diagnosis at this time. Etiology n/a Signs/Symptoms: n/a Malnutrition Related to Morbid Obesity Malnutrition related to morbid obesity No Intervention/Recommendation Comments Continue with Regular diet as ordered. Expected Outcomes/Goals Expected Outcomes/Goals 1. PO intake to continue to meet 75% of nutritional needs. 2. Monitor PO intake, wt, nutrition related labs, and skin integrity. 3. F/U as low risk in 7 days, 05/02
--- NOTE | 2019-04-26 11:03 | Progress Notes ---
DATE: 04/26/2019 SUBJECTIVE: Staff was spoken to. The patient is interviewed. Mood is noted to be irritable. Affect is constricted. The patient's insight and judgment at this time are noted to be still impaired. Impulse control is noted to be poor. The patient is insisting that she should be returned back to the facility where she was at before. The patient's daughter has been spoken to in detail, so also the housing case manager. nursing agency manager has been mentioning that the patient is an elopement risk. That is the no reason why the facility is looking for some secured place. ASSESSMENT: The patient is still impulsive. PLAN: To continue the patient with supportive therapy. I encouraged the patient to verbalize the concerns rather than to act out. JOB# [id number]
--- NOTE | 2019-04-27 17:14 | Internal Medicine Prog Note ---
Internal Medicine Subjective - Subjective Service Date: 04/27/19 Patient is:: awake, verbal, interactive, ambulating Per staff patient has:: no adverse event, no episodes of fall, poor appetite, tolerating meds Internal Medicine Objective - Results Result Diagrams: 04/19/19 16:20 04/19/19 16:20 Recent Labs: Laboratory Last Values WBC 7.9 Th/cmm (4.8-10.8) 04/19/19 16:20 RBC 3.66 Mil/cmm (3.80-5.20) L 04/19/19 16:20 Hgb 11.4 gm/dL (12-16) L 04/19/19 16:20 Hct 32.7 % (41.0-60) L 04/19/19 16:20 MCV 89.5 fl (81-100) 04/19/19 16:20 MCH 31.2 pg (27.0-31.0) H 04/19/19 16:20 MCHC Differential 34.9 pg (28.0-36.0) 04/19/19 16:20 RDW 12.2 % (11.5-20.0) 04/19/19 16:20 Plt Count 317 Th/cmm (150-400) 04/19/19 16:20 MPV 8.0 fl 04/19/19 16:20 Neutrophils % 63.1 % (40.0-80.0) 04/19/19 16:20 Lymphocytes % 27.8 % (20.0-50.0) 04/19/19 16:20 Monocytes % 6.8 % (2.0-10.0) 04/19/19 16:20 Eosinophils % 1.7 % (0.0-5.0) 04/19/19 16:20 Basophils % 0.6 % (0.0-2.0) 04/19/19 16:20 Sodium 136 mEq/L (136-145) 04/19/19 16:20 Potassium 4.1 mEq/L (3.5-5.1) 04/19/19 16:20 Chloride 104 mEq/L (98-107) 04/19/19 16:20 Carbon Dioxide 23.8 mEq/L (21.0-31.0) 04/19/19 16:20 Anion Gap 12.3 (7.0-16.0) 04/19/19 16:20 BUN 19 mg/dL (7-25) 04/19/19 16:20 Creatinine 0.9 mg/dL (0.6-1.2) 04/19/19 16:20 Est GFR ( Amer) TNP 04/19/19 16:20 Est GFR (Non-Af Amer) TNP 04/19/19 16:20 BUN/Creatinine Ratio 21.1 04/19/19 16:20 Glucose 96 mg/dL (70-105) 04/19/19 16:20 Calcium 9.0 mg/dL (8.6-10.3) 04/19/19 16:20 Total Bilirubin 0.3 mg/dL (0.3-1.0) 04/19/19 16:20 AST 17 U/L (13-39) 04/19/19 16:20 ALT 9 U/L (7-52) 04/19/19 16:20 Alkaline Phosphatase 56 U/L (34-104) 04/19/19 16:20 Total Protein 7.3 gm/dL (6.0-8.3) 04/19/19 16:20 Albumin 4.0 gm/dL (3.7-5.3) 04/19/19 16:20 Globulin 3.3 gm/dL 04/19/19 16:20 Albumin/Globulin Ratio 1.2 (1.0-1.8) 04/19/19 16:20 Triglycerides 100 mg/dL (<150) 04/19/19 16:20 Cholesterol 188 mg/dL (<200) 04/19/19 16:20 LDL Cholesterol Direct 135 mg/dL (75-193) 04/19/19 16:20 HDL Cholesterol 37 mg/dL (23-92) 04/19/19 16:20 TSH 1.29 uIU/ml (0.34-5.60) 04/19/19 16:20 Urine Source CLEAN C 04/19/19 16:15 Urine Color YELLOW 04/19/19 16:15 Urine Clarity HAZY (CLEAR) 04/19/19 16:15 Urine pH 6.0 (4.6 - 8.0) 04/19/19 16:15 Ur Specific [place] 1.015 (1.005-1.030) 04/19/19 16:15 Urine Protein NEGATIVE mg/dL (NEGATIVE) 04/19/19 16:15 Urine Glucose (UA) NEGATIVE mg/dL (NEGATIVE) 04/19/19 16:15 Urine Ketones NEGATIVE mg/dL (NEGATIVE) 04/19/19 16:15 Urine Blood TRACE (NEGATIVE) 04/19/19 16:15 Urine Nitrate NEGATIVE (NEGATIVE) 04/19/19 16:15 Urine Bilirubin NEGATIVE (NEGATIVE) 04/19/19 16:15 Urine Urobilinogen 0.2 E.U./dL (0.2 - 1.0) 04/19/19 16:15 Ur Leukocyte Esterase SMALL (NEGATIVE) H 04/19/19 16:15 Urine RBC 2-5 /hpf (0-5) 04/19/19 16:15 Urine WBC 6-10 /hpf (0-5) H 04/19/19 16:15 Ur Epithelial Cells FEW /lpf (FEW) 04/19/19 16:15 Urine Bacteria FEW /hpf (NONE SEEN) 04/19/19 16:15 RPR NONREACTIVE (NONREACTIVE) 04/19/19 16:20 - Physical Exam Vitals and I&O: Vital Signs Temp 97.3 F 04/27/19 14:28 Pulse 78 04/27/19 14:28 Resp 20 04/27/19 14:28 BP 139/53 04/27/19 14:28 Pulse Ox 96 04/27/19 14:28 Intake & Output 04/26/19 04/27/19 04/27/19 18:59 06:59 18:59 Intake Total 1400 240 Balance 1400 240 Intake: Oral 1400 240 Other: # Voids 3 2 # Bowel Movements 0 0 Active Medications: Current Medications Amlodipine Besylate (Norvasc) 5 mg PO DAILY LYNDSAY Stop: 06/19/19 08:59 Last Admin: 04/27/19 09:35 Dose: Not Given Benazepril HCl (Lotensin) 20 mg PO DAILY LYNDSAY Stop: 06/19/19 08:59 Last Admin: 04/27/19 09:34 Dose: Not Given Donepezil HCl (Aricept) 5 mg PO DAILY LYNDSAY Stop: 06/25/19 08:59 Last Admin: 04/27/19 09:34 Dose: 5 mg Gabapentin (Neurontin) 300 mg PO BID LYNDSAY Stop: 06/19/19 08:59 Last Admin: 04/27/19 16:39 Dose: 300 mg Lorazepam (Ativan) 1 mg PO Q4HR PRN; Protocol PRN Reason: Anxiety Stop: 06/18/19 19:57 Last Admin: 04/21/19 16:44 Dose: 1 mg Meclizine HCl (Antivert) 25 mg PO TID PRN PRN Reason: Dizziness Stop: 06/18/19 19:57 Memantine (Namenda) 5 mg PO BID LYNDSAY Stop: 06/24/19 16:59 Last Admin: 04/27/19 16:39 Dose: 5 mg Zolpidem Tartrate (Ambien) 5 mg PO HS PRN PRN Reason: Insomnia Stop: 06/18/19 19:52 General: alert HEENT: NC/AT, PERRLA, EOMI Neck: Supple, No JVD, No thyromegaly, No LAD Lungs: CTAB Cardiovascular: RRR, Normal S1, Normal S2, with murmur Abdomen: soft, non-tender, thin, non-distended, positive bowel sound Extremities: excoriation Internal Medicine Assmt/Plan - Assessment Assessment: Anemia, hypertension, pyuria, history of vertigo, history of hypercholesterolemia. . - Plan Plan: Continue the patient on current antihypertensive medication on a calcium shahida as well as angiotensin converting enzyme inhibitor. Continue on low sodium diet. The patient does not have any indication of urinary tract infection, although on antibiotic. The patient's medical therapy and follow up with her regular physician upon discharge Nutritional Asmnt/Malnutr-PDOC - Dietary Evaluation Malnutrition Findings (Please click <Entered> for more info): Nutritional Asmnt/Malnutrition Start: 04/25/19 12: 43 Text: Status: Complete Freq: Protocol: Document 04/25/19 12:43 ADAM (Rec: 04/25/19 12:54 ADAM [email or web address]) Nutritional Asmnt/Malnutrition Patient General Information Nutritional Screening Low Risk Diagnosis Psychosis NOS Pertinent Medical Hx/Surgical Hx HTN, hypercholesterolemia, vertigo Subjective Information Pt is a 52-year-old female admitted on 04/19 d/t psychosis NOS, medical clearance for [facility]. Pt is currently eating an estimated 72% melas x3 days per Meal/ Nutrition Activity Record. HT: 52 WT: 116 LB (52.73 kg) BMI: 21.22 (Normal) GI: WNL, flat, soft, non- tender BM: 04/24 x1 I/O: 120/Not Noted Skin: WNL, intact Wilian: 21 Diet Order: Regular Estimated Energy Needs: ( Geriatric, CBW) 1325-7587 kcals (25-30 kcals/ kg) 53-63g Pro (1.0-1.2 g/kg) 5129-6916 ml (25-30 ml/kg) Pt is eating 72% of meals Per Meal/Nutrition Activity Record . Dietary is currently providing an estimated 2900 kcals and 130 gm Pro, per Pt PO intake this is providing an estimated 2088 kcals and 94gm Pro to meet 100+% kcal and 100+% Pro needs. Current Diet Order/ Nutrition Support Regular Pertinent Medications Antivert (PRN) Pertinent Labs 04/19: Hgb/Hct 11.4/32.7 Nutritional Hx/Data Height 5 ft 2 in Height (Calculated Centimeters) 157.5 Current Weight (lbs) 116 lb Weight (Calculated Kilograms) 52.6 Weight (Calculated Grams) 68634.7 [place] Body Weight 110 % [place] Body Weight 105 Body Mass Index (BMI) 21.2 Weight Status Approriate GI Symptoms GI Symptoms None Last BM 04/24 x1 Skin Integrity/Comment: Skin: WNL, intact Wilian: 21 Current %PO Fair (50-74%) Estimated Nutritional Goals BEE in Kcals: Using Current wt Calories/Kcals/Kg 25-30 Kcals Calculated 5764-4998 Protein: Using Current wt Protein g/k.0-1.2 Protein Calculated 53-63 Fluid: ml 5233-9270 ml (25-30 ml/kg) Nutritional Problem No current Nutrition Prob Problem No nutrition diagnosis at this time. Etiology n/a Signs/Symptoms: n/a Malnutrition Related to Morbid Obesity Malnutrition related to morbid obesity No Intervention/Recommendation Comments Continue with Regular diet as ordered. Expected Outcomes/Goals Expected Outcomes/Goals 1. PO intake to continue to meet 75% of nutritional needs. 2. Monitor PO intake, wt, nutrition related labs, and skin integrity. 3. F/U as low risk in 7 days, 05/02
--- NOTE | 2019-04-28 04:56 | Progress Notes ---
DATE: 04/27/2019 PSYCHIATRIC PROGRESS NOTE SUBJECTIVE: Staff was spoken to. The patient is interviewed. Mood is noted to be irritable. Affect is constricted. The patient is returning after the staff stating that they are taking all her clothes. The patient's insight and judgment at this time are noted to be very much impaired. Impulse control is noted to be limited. The patient's coping skills are also noted to be limited. The patient at this time getting easily agitated and upset stating that there is no reason for her to be in here and they have been keeping her here for ____. In view of the paranoia and agitation, I have decided to start the patient with low dose of the Seroquel at nighttime and follow the patient up. JOB# [id number]
--- NOTE | 2019-04-28 13:26 | Internal Medicine Prog Note ---
Internal Medicine Subjective - Subjective Service Date: 04/28/19 Patient is:: awake, verbal, interactive, ambulating Per staff patient has:: no adverse event, no episodes of fall, poor appetite, tolerating meds Internal Medicine Objective - Results Result Diagrams: 04/19/19 16:20 04/19/19 16:20 Recent Labs: Laboratory Last Values WBC 7.9 Th/cmm (4.8-10.8) 04/19/19 16:20 RBC 3.66 Mil/cmm (3.80-5.20) L 04/19/19 16:20 Hgb 11.4 gm/dL (12-16) L 04/19/19 16:20 Hct 32.7 % (41.0-60) L 04/19/19 16:20 MCV 89.5 fl (81-100) 04/19/19 16:20 MCH 31.2 pg (27.0-31.0) H 04/19/19 16:20 MCHC Differential 34.9 pg (28.0-36.0) 04/19/19 16:20 RDW 12.2 % (11.5-20.0) 04/19/19 16:20 Plt Count 317 Th/cmm (150-400) 04/19/19 16:20 MPV 8.0 fl 04/19/19 16:20 Neutrophils % 63.1 % (40.0-80.0) 04/19/19 16:20 Lymphocytes % 27.8 % (20.0-50.0) 04/19/19 16:20 Monocytes % 6.8 % (2.0-10.0) 04/19/19 16:20 Eosinophils % 1.7 % (0.0-5.0) 04/19/19 16:20 Basophils % 0.6 % (0.0-2.0) 04/19/19 16:20 Sodium 136 mEq/L (136-145) 04/19/19 16:20 Potassium 4.1 mEq/L (3.5-5.1) 04/19/19 16:20 Chloride 104 mEq/L (98-107) 04/19/19 16:20 Carbon Dioxide 23.8 mEq/L (21.0-31.0) 04/19/19 16:20 Anion Gap 12.3 (7.0-16.0) 04/19/19 16:20 BUN 19 mg/dL (7-25) 04/19/19 16:20 Creatinine 0.9 mg/dL (0.6-1.2) 04/19/19 16:20 Est GFR ( Amer) TNP 04/19/19 16:20 Est GFR (Non-Af Amer) TNP 04/19/19 16:20 BUN/Creatinine Ratio 21.1 04/19/19 16:20 Glucose 96 mg/dL (70-105) 04/19/19 16:20 Calcium 9.0 mg/dL (8.6-10.3) 04/19/19 16:20 Total Bilirubin 0.3 mg/dL (0.3-1.0) 04/19/19 16:20 AST 17 U/L (13-39) 04/19/19 16:20 ALT 9 U/L (7-52) 04/19/19 16:20 Alkaline Phosphatase 56 U/L (34-104) 04/19/19 16:20 Total Protein 7.3 gm/dL (6.0-8.3) 04/19/19 16:20 Albumin 4.0 gm/dL (3.7-5.3) 04/19/19 16:20 Globulin 3.3 gm/dL 04/19/19 16:20 Albumin/Globulin Ratio 1.2 (1.0-1.8) 04/19/19 16:20 Triglycerides 100 mg/dL (<150) 04/19/19 16:20 Cholesterol 188 mg/dL (<200) 04/19/19 16:20 LDL Cholesterol Direct 135 mg/dL (75-193) 04/19/19 16:20 HDL Cholesterol 37 mg/dL (23-92) 04/19/19 16:20 TSH 1.29 uIU/ml (0.34-5.60) 04/19/19 16:20 Urine Source CLEAN C 04/19/19 16:15 Urine Color YELLOW 04/19/19 16:15 Urine Clarity HAZY (CLEAR) 04/19/19 16:15 Urine pH 6.0 (4.6 - 8.0) 04/19/19 16:15 Ur Specific [place] 1.015 (1.005-1.030) 04/19/19 16:15 Urine Protein NEGATIVE mg/dL (NEGATIVE) 04/19/19 16:15 Urine Glucose (UA) NEGATIVE mg/dL (NEGATIVE) 04/19/19 16:15 Urine Ketones NEGATIVE mg/dL (NEGATIVE) 04/19/19 16:15 Urine Blood TRACE (NEGATIVE) 04/19/19 16:15 Urine Nitrate NEGATIVE (NEGATIVE) 04/19/19 16:15 Urine Bilirubin NEGATIVE (NEGATIVE) 04/19/19 16:15 Urine Urobilinogen 0.2 E.U./dL (0.2 - 1.0) 04/19/19 16:15 Ur Leukocyte Esterase SMALL (NEGATIVE) H 04/19/19 16:15 Urine RBC 2-5 /hpf (0-5) 04/19/19 16:15 Urine WBC 6-10 /hpf (0-5) H 04/19/19 16:15 Ur Epithelial Cells FEW /lpf (FEW) 04/19/19 16:15 Urine Bacteria FEW /hpf (NONE SEEN) 04/19/19 16:15 RPR NONREACTIVE (NONREACTIVE) 04/19/19 16:20 - Physical Exam Vitals and I&O: Vital Signs Temp 98 F 04/28/19 06:26 Pulse 91 04/28/19 08:42 Resp 20 04/28/19 06:26 BP 123/80 04/28/19 08:42 Pulse Ox 98 04/28/19 06:26 Intake & Output 04/27/19 04/28/19 04/28/19 18:59 06:59 18:59 Intake Total 1200 240 Balance 1200 240 Intake: Oral 1200 240 Other: # Voids 3 1 # Bowel Movements 0 Active Medications: Current Medications Amlodipine Besylate (Norvasc) 5 mg PO DAILY [facility] Stop: 06/19/19 08:59 Last Admin: 04/28/19 08:41 Dose: 5 mg Benazepril HCl (Lotensin) 20 mg PO DAILY LYNDSAY Stop: 06/19/19 08:59 Last Admin: 04/28/19 08:42 Dose: 20 mg Donepezil HCl (Aricept) 5 mg PO DAILY LYNDSAY Stop: 06/25/19 08:59 Last Admin: 04/28/19 08:42 Dose: 5 mg Gabapentin (Neurontin) 300 mg PO BID LYNDSAY Stop: 06/19/19 08:59 Last Admin: 04/28/19 08:42 Dose: 300 mg Lorazepam (Ativan) 1 mg PO Q4HR PRN; Protocol PRN Reason: Anxiety Stop: 06/18/19 19:57 Last Admin: 04/21/19 16:44 Dose: 1 mg Meclizine HCl (Antivert) 25 mg PO TID PRN PRN Reason: Dizziness Stop: 06/18/19 19:57 Memantine (Namenda) 5 mg PO BID LYNDSAY Stop: 06/24/19 16:59 Last Admin: 04/28/19 08:42 Dose: 5 mg Quetiapine Fumarate (Seroquel) 12.5 mg PO HS LYNDSAY; Protocol Stop: 06/26/19 20:59 Zolpidem Tartrate (Ambien) 5 mg PO HS PRN PRN Reason: Insomnia Stop: 06/18/19 19:52 General: alert HEENT: NC/AT, PERRLA, EOMI Neck: Supple, No JVD, No thyromegaly, No LAD Lungs: CTAB Cardiovascular: RRR, Normal S1, Normal S2, with murmur Abdomen: soft, non-tender, thin, non-distended, positive bowel sound Extremities: excoriation Internal Medicine Assmt/Plan - Assessment Assessment: Anemia, hypertension, pyuria, history of vertigo, history of hypercholesterolemia. . - Plan Plan: Continue the patient on current antihypertensive medication on a calcium shahida as well as angiotensin converting enzyme inhibitor. Continue on low sodium diet. The patient does not have any indication of urinary tract infection, although on antibiotic. The patient's medical therapy and follow up with her regular physician upon discharge Nutritional Asmnt/Malnutr-PDOC - Dietary Evaluation Malnutrition Findings (Please click <Entered> for more info): Nutritional Asmnt/Malnutrition Start: 04/25/19 12: 43 Text: Status: Complete Freq: Protocol: Document 04/25/19 12:43 ADAM (Rec: 04/25/19 12:54 ADAM [id number]) Nutritional Asmnt/Malnutrition Patient General Information Nutritional Screening Low Risk Diagnosis Psychosis NOS Pertinent Medical Hx/Surgical Hx HTN, hypercholesterolemia, vertigo Subjective Information Pt is a 52-year-old female admitted on 04/19 d/t psychosis NOS, medical clearance for [facility]. Pt is currently eating an estimated 72% melas x3 days per Meal/ Nutrition Activity Record. HT: 52 WT: 116 LB (52.73 kg) BMI: 21.22 (Normal) GI: WNL, flat, soft, non- tender BM: 04/24 x1 I/O: 120/Not Noted Skin: WNL, intact Wilian: 21 Diet Order: Regular Estimated Energy Needs: ( Geriatric, CBW) 6435-4643 kcals (25-30 kcals/ kg) 53-63g Pro (1.0-1.2 g/kg) 3085-7964 ml (25-30 ml/kg) Pt is eating 72% of meals Per Meal/Nutrition Activity Record . Dietary is currently providing an estimated 2900 kcals and 130 gm Pro, per Pt PO intake this is providing an estimated 2088 kcals and 94gm Pro to meet 100+% kcal and 100+% Pro needs. Current Diet Order/ Nutrition Support Regular Pertinent Medications Antivert (PRN) Pertinent Labs 04/19: Hgb/Hct 11.4/32.7 Nutritional Hx/Data Height 5 ft 2 in Height (Calculated Centimeters) 157.5 Current Weight (lbs) 116 lb Weight (Calculated Kilograms) 52.6 Weight (Calculated Grams) 62731.7 [place] Body Weight 110 % [place] Body Weight 105 Body Mass Index (BMI) 21.2 Weight Status Approriate GI Symptoms GI Symptoms None Last BM 04/24 x1 Skin Integrity/Comment: Skin: WNL, intact Wilian: 21 Current %PO Fair (50-74%) Estimated Nutritional Goals BEE in Kcals: Using Current wt Calories/Kcals/Kg 25-30 Kcals Calculated 8475-9957 Protein: Using Current wt Protein g/k.0-1.2 Protein Calculated 53-63 Fluid: ml 0655-5647 ml (25-30 ml/kg) Nutritional Problem No current Nutrition Prob Problem No nutrition diagnosis at this time. Etiology n/a Signs/Symptoms: n/a Malnutrition Related to Morbid Obesity Malnutrition related to morbid obesity No Intervention/Recommendation Comments Continue with Regular diet as ordered. Expected Outcomes/Goals Expected Outcomes/Goals 1. PO intake to continue to meet 75% of nutritional needs. 2. Monitor PO intake, wt, nutrition related labs, and skin integrity. 3. F/U as low risk in 7 days, 05/02
--- NOTE | 2019-04-28 20:48 | Progress Notes ---
DATE: 04/28/2019 SUBJECTIVE: Staff was spoken to. The patient is interviewed. Mood is noted to be irritable. Affect is constricted. Insight and judgment are noted to be still impaired. The patient is pacing most of the time on the unit. The patient has short-term memory deficits. Long-term memory seems to be fair. The patient has been having difficult time to cope with the stress in here and the patient's showcase maker has been trying to look for a place where the patient can be closely monitored. The previous facility is an open one and they are afraid that the patient is going to be low. ASSESSMENT: The patient is still paranoid and demented. PLAN: To continue the patient with the Seroquel and followup. JOB# [id number]
--- NOTE | 2019-04-29 14:08 | Internal Medicine Prog Note ---
Internal Medicine Subjective - Subjective Service Date: 04/29/19 Patient is:: awake, verbal, interactive, ambulating Per staff patient has:: no adverse event, no episodes of fall, poor appetite, tolerating meds Internal Medicine Objective - Results Result Diagrams: 04/19/19 16:20 04/19/19 16:20 Recent Labs: Laboratory Last Values WBC 7.9 Th/cmm (4.8-10.8) 04/19/19 16:20 RBC 3.66 Mil/cmm (3.80-5.20) L 04/19/19 16:20 Hgb 11.4 gm/dL (12-16) L 04/19/19 16:20 Hct 32.7 % (41.0-60) L 04/19/19 16:20 MCV 89.5 fl (81-100) 04/19/19 16:20 MCH 31.2 pg (27.0-31.0) H 04/19/19 16:20 MCHC Differential 34.9 pg (28.0-36.0) 04/19/19 16:20 RDW 12.2 % (11.5-20.0) 04/19/19 16:20 Plt Count 317 Th/cmm (150-400) 04/19/19 16:20 MPV 8.0 fl 04/19/19 16:20 Neutrophils % 63.1 % (40.0-80.0) 04/19/19 16:20 Lymphocytes % 27.8 % (20.0-50.0) 04/19/19 16:20 Monocytes % 6.8 % (2.0-10.0) 04/19/19 16:20 Eosinophils % 1.7 % (0.0-5.0) 04/19/19 16:20 Basophils % 0.6 % (0.0-2.0) 04/19/19 16:20 Sodium 136 mEq/L (136-145) 04/19/19 16:20 Potassium 4.1 mEq/L (3.5-5.1) 04/19/19 16:20 Chloride 104 mEq/L (98-107) 04/19/19 16:20 Carbon Dioxide 23.8 mEq/L (21.0-31.0) 04/19/19 16:20 Anion Gap 12.3 (7.0-16.0) 04/19/19 16:20 BUN 19 mg/dL (7-25) 04/19/19 16:20 Creatinine 0.9 mg/dL (0.6-1.2) 04/19/19 16:20 Est GFR ( Amer) TNP 04/19/19 16:20 Est GFR (Non-Af Amer) TNP 04/19/19 16:20 BUN/Creatinine Ratio 21.1 04/19/19 16:20 Glucose 96 mg/dL (70-105) 04/19/19 16:20 Calcium 9.0 mg/dL (8.6-10.3) 04/19/19 16:20 Total Bilirubin 0.3 mg/dL (0.3-1.0) 04/19/19 16:20 AST 17 U/L (13-39) 04/19/19 16:20 ALT 9 U/L (7-52) 04/19/19 16:20 Alkaline Phosphatase 56 U/L (34-104) 04/19/19 16:20 Total Protein 7.3 gm/dL (6.0-8.3) 04/19/19 16:20 Albumin 4.0 gm/dL (3.7-5.3) 04/19/19 16:20 Globulin 3.3 gm/dL 04/19/19 16:20 Albumin/Globulin Ratio 1.2 (1.0-1.8) 04/19/19 16:20 Triglycerides 100 mg/dL (<150) 04/19/19 16:20 Cholesterol 188 mg/dL (<200) 04/19/19 16:20 LDL Cholesterol Direct 135 mg/dL (75-193) 04/19/19 16:20 HDL Cholesterol 37 mg/dL (23-92) 04/19/19 16:20 TSH 1.29 uIU/ml (0.34-5.60) 04/19/19 16:20 Urine Source CLEAN C 04/19/19 16:15 Urine Color YELLOW 04/19/19 16:15 Urine Clarity HAZY (CLEAR) 04/19/19 16:15 Urine pH 6.0 (4.6 - 8.0) 04/19/19 16:15 Ur Specific [place] 1.015 (1.005-1.030) 04/19/19 16:15 Urine Protein NEGATIVE mg/dL (NEGATIVE) 04/19/19 16:15 Urine Glucose (UA) NEGATIVE mg/dL (NEGATIVE) 04/19/19 16:15 Urine Ketones NEGATIVE mg/dL (NEGATIVE) 04/19/19 16:15 Urine Blood TRACE (NEGATIVE) 04/19/19 16:15 Urine Nitrate NEGATIVE (NEGATIVE) 04/19/19 16:15 Urine Bilirubin NEGATIVE (NEGATIVE) 04/19/19 16:15 Urine Urobilinogen 0.2 E.U./dL (0.2 - 1.0) 04/19/19 16:15 Ur Leukocyte Esterase SMALL (NEGATIVE) H 04/19/19 16:15 Urine RBC 2-5 /hpf (0-5) 04/19/19 16:15 Urine WBC 6-10 /hpf (0-5) H 04/19/19 16:15 Ur Epithelial Cells FEW /lpf (FEW) 04/19/19 16:15 Urine Bacteria FEW /hpf (NONE SEEN) 04/19/19 16:15 RPR NONREACTIVE (NONREACTIVE) 04/19/19 16:20 - Physical Exam Vitals and I&O: Vital Signs Temp 97.1 F 04/29/19 06:36 Pulse 80 04/29/19 08:47 Resp 17 04/29/19 08:00 BP 142/84 04/29/19 08:47 Pulse Ox 98 04/29/19 06:36 Intake & Output 04/28/19 04/29/19 04/29/19 18:59 06:59 18:59 Intake Total 1000 120 Balance 1000 120 Intake: Oral 1000 120 Other: # Voids 4 2 # Bowel Movements 1 Active Medications: Current Medications Amlodipine Besylate (Norvasc) 5 mg PO DAILY [facility] Stop: 06/19/19 08:59 Last Admin: 04/29/19 08:47 Dose: 5 mg Benazepril HCl (Lotensin) 20 mg PO DAILY [facility] Stop: 06/19/19 08:59 Last Admin: 04/29/19 08:46 Dose: 20 mg Cyanocobalamin (Vitamin B12) 1,000 mcg IM QMONTH [facility] Stop: 06/28/19 07:44 Last Admin: 04/29/19 08:20 Dose: 1,000 mcg Donepezil HCl (Aricept) 5 mg PO DAILY [facility] Stop: 06/25/19 08:59 Last Admin: 04/29/19 08:46 Dose: 5 mg Gabapentin (Neurontin) 300 mg PO BID [facility] Stop: 06/19/19 08:59 Last Admin: 04/29/19 08:46 Dose: 300 mg Lorazepam (Ativan) 1 mg PO Q4HR PRN; Protocol PRN Reason: Anxiety Stop: 06/18/19 19:57 Last Admin: 04/21/19 16:44 Dose: 1 mg Meclizine HCl (Antivert) 25 mg PO TID PRN PRN Reason: Dizziness Stop: 06/18/19 19:57 Last Admin: 04/28/19 16:31 Dose: 25 mg Memantine (Namenda) 5 mg PO BID [facility] Stop: 06/24/19 16:59 Last Admin: 04/29/19 08:46 Dose: 5 mg Quetiapine Fumarate (Seroquel) 25 mg PO HS [facility]; Protocol Stop: 06/28/19 20:59 Zolpidem Tartrate (Ambien) 5 mg PO HS PRN PRN Reason: Insomnia Stop: 06/18/19 19:52 General: alert HEENT: NC/AT, PERRLA, EOMI Neck: Supple, No JVD, No thyromegaly, No LAD Lungs: CTAB Cardiovascular: RRR, Normal S1, Normal S2, with murmur Abdomen: soft, non-tender, thin, non-distended, positive bowel sound Extremities: excoriation Internal Medicine Assmt/Plan - Assessment Assessment: Anemia, hypertension, pyuria, history of vertigo, history of hypercholesterolemia. . 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 Pt is currently eating an estimated 72% melas x3 days per Meal/ Nutrition Activity Record. HT: 52 WT: 116 LB (52.73 kg) BMI: 21.22 (Normal) GI: WNL, flat, soft, non- tender BM: 04/24 x1 I/O: 120/Not Noted Skin: WNL, intact Wilian: 21 Diet Order: Regular Estimated Energy Needs: ( Geriatric, CBW) 2573-4385 kcals (25-30 kcals/ kg) 53-63g Pro (1.0-1.2 g/kg) 1654-0721 ml (25-30 ml/kg) Pt is eating 72% of meals Per Meal/Nutrition Activity Record . Dietary is currently providing an estimated 2900 kcals and 130 gm Pro, per Pt PO intake this is providing an estimated 2088 kcals and 94gm Pro to meet 100+% kcal and 100+% Pro needs. Current Diet Order/ Nutrition Support Regular Pertinent Medications Antivert (PRN) Pertinent Labs 04/19: Hgb/Hct 11.4/32.7 Nutritional Hx/Data Height 5 ft 2 in Height (Calculated Centimeters) 157.5 Current Weight (lbs) 116 lb Weight (Calculated Kilograms) 52.6 Weight (Calculated Grams) 61549.7 [place] Body Weight 110 % [place] Body Weight 105 Body Mass Index (BMI) 21.2 Weight Status Approriate GI Symptoms GI Symptoms None Last BM 04/24 x1 Skin Integrity/Comment: Skin: WNL, intact Wilian: 21 Current %PO Fair (50-74%) Estimated Nutritional Goals BEE in Kcals: Using Current wt Calories/Kcals/Kg 25-30 Kcals Calculated 2272-7657 Protein: Using Current wt Protein g/k.0-1.2 Protein Calculated 53-63 Fluid: ml 5918-5905 ml (25-30 ml/kg) Nutritional Problem No current Nutrition Prob Problem No nutrition diagnosis at this time. Etiology n/a Signs/Symptoms: n/a Malnutrition Related to Morbid Obesity Malnutrition related to morbid obesity No Intervention/Recommendation Comments Continue with Regular diet as ordered. Expected Outcomes/Goals Expected Outcomes/Goals 1. PO intake to continue to meet 75% of nutritional needs. 2. Monitor PO intake, wt, nutrition related labs, and skin integrity. 3. F/U as low risk in 7 days, 05/02
--- NOTE | 2019-04-29 21:55 | Progress Notes ---
DATE: 04/29/2019 SUBJECTIVE: Staff was spoken to. The patient is interviewed. Mood is noted to be irritable. Affect is constricted. The patient is pacing most of the time insisting that there is no reason for her to be in here, she needs to be out. Coping skills are noted to be extremely poor. Insight and judgment are also noted to be very much impaired. The patient has been having paranoia, but denies any command hallucinations. ASSESSMENT: The patient is still demented and impulsive. PLAN: To continue the patient with supportive therapy and encouraged the patient to verbalize the concerns rather than to act out. [facility]# [id number]
--- NOTE | 2019-04-30 11:38 | Internal Medicine Prog Note ---
Internal Medicine Subjective - Subjective Patient seen and examined:: with staff, chart reviewed Patient is:: awake, verbal, interactive, ambulating Per staff patient has:: no adverse event, no episodes of fall, poor appetite, tolerating meds Internal Medicine Objective - Results Result Diagrams: 04/19/19 16:20 04/19/19 16:20 Recent Labs: Laboratory Last Values WBC 7.9 Th/cmm (4.8-10.8) 04/19/19 16:20 RBC 3.66 Mil/cmm (3.80-5.20) L 04/19/19 16:20 Hgb 11.4 gm/dL (12-16) L 04/19/19 16:20 Hct 32.7 % (41.0-60) L 04/19/19 16:20 MCV 89.5 fl (81-100) 04/19/19 16:20 MCH 31.2 pg (27.0-31.0) H 04/19/19 16:20 MCHC Differential 34.9 pg (28.0-36.0) 04/19/19 16:20 RDW 12.2 % (11.5-20.0) 04/19/19 16:20 Plt Count 317 Th/cmm (150-400) 04/19/19 16:20 MPV 8.0 fl 04/19/19 16:20 Neutrophils % 63.1 % (40.0-80.0) 04/19/19 16:20 Lymphocytes % 27.8 % (20.0-50.0) 04/19/19 16:20 Monocytes % 6.8 % (2.0-10.0) 04/19/19 16:20 Eosinophils % 1.7 % (0.0-5.0) 04/19/19 16:20 Basophils % 0.6 % (0.0-2.0) 04/19/19 16:20 Sodium 136 mEq/L (136-145) 04/19/19 16:20 Potassium 4.1 mEq/L (3.5-5.1) 04/19/19 16:20 Chloride 104 mEq/L (98-107) 04/19/19 16:20 Carbon Dioxide 23.8 mEq/L (21.0-31.0) 04/19/19 16:20 Anion Gap 12.3 (7.0-16.0) 04/19/19 16:20 BUN 19 mg/dL (7-25) 04/19/19 16:20 Creatinine 0.9 mg/dL (0.6-1.2) 04/19/19 16:20 Est GFR ( Amer) TNP 04/19/19 16:20 Est GFR (Non-Af Amer) TNP 04/19/19 16:20 BUN/Creatinine Ratio 21.1 04/19/19 16:20 Glucose 96 mg/dL (70-105) 04/19/19 16:20 Calcium 9.0 mg/dL (8.6-10.3) 04/19/19 16:20 Total Bilirubin 0.3 mg/dL (0.3-1.0) 04/19/19 16:20 AST 17 U/L (13-39) 04/19/19 16:20 ALT 9 U/L (7-52) 04/19/19 16:20 Alkaline Phosphatase 56 U/L (34-104) 04/19/19 16:20 Total Protein 7.3 gm/dL (6.0-8.3) 04/19/19 16:20 Albumin 4.0 gm/dL (3.7-5.3) 04/19/19 16:20 Globulin 3.3 gm/dL 04/19/19 16:20 Albumin/Globulin Ratio 1.2 (1.0-1.8) 04/19/19 16:20 Triglycerides 100 mg/dL (<150) 04/19/19 16:20 Cholesterol 188 mg/dL (<200) 04/19/19 16:20 LDL Cholesterol Direct 135 mg/dL (75-193) 04/19/19 16:20 HDL Cholesterol 37 mg/dL (23-92) 04/19/19 16:20 TSH 1.29 uIU/ml (0.34-5.60) 04/19/19 16:20 Urine Source CLEAN C 04/19/19 16:15 Urine Color YELLOW 04/19/19 16:15 Urine Clarity HAZY (CLEAR) 04/19/19 16:15 Urine pH 6.0 (4.6 - 8.0) 04/19/19 16:15 Ur Specific [place] 1.015 (1.005-1.030) 04/19/19 16:15 Urine Protein NEGATIVE mg/dL (NEGATIVE) 04/19/19 16:15 Urine Glucose (UA) NEGATIVE mg/dL (NEGATIVE) 04/19/19 16:15 Urine Ketones NEGATIVE mg/dL (NEGATIVE) 04/19/19 16:15 Urine Blood TRACE (NEGATIVE) 04/19/19 16:15 Urine Nitrate NEGATIVE (NEGATIVE) 04/19/19 16:15 Urine Bilirubin NEGATIVE (NEGATIVE) 04/19/19 16:15 Urine Urobilinogen 0.2 E.U./dL (0.2 - 1.0) 04/19/19 16:15 Ur Leukocyte Esterase SMALL (NEGATIVE) H 04/19/19 16:15 Urine RBC 2-5 /hpf (0-5) 04/19/19 16:15 Urine WBC 6-10 /hpf (0-5) H 04/19/19 16:15 Ur Epithelial Cells FEW /lpf (FEW) 04/19/19 16:15 Urine Bacteria FEW /hpf (NONE SEEN) 04/19/19 16:15 RPR NONREACTIVE (NONREACTIVE) 04/19/19 16:20 - Physical Exam Vitals and I&O: Vital Signs Temp 97.3 F 04/30/19 06:34 Pulse 62 04/30/19 08:32 Resp 18 04/30/19 06:34 BP 106/63 04/30/19 08:32 Pulse Ox 98 04/30/19 06:34 Intake & Output 04/29/19 04/30/19 04/30/19 18:59 06:59 18:59 Intake Total 900 120 Balance 900 120 Intake: Oral 900 120 Other: # Voids 3 3 # Bowel Movements 1 Active Medications: Current Medications Amlodipine Besylate (Norvasc) 5 mg PO DAILY [facility] Stop: 06/19/19 08:59 Last Admin: 04/30/19 08:32 Dose: Not Given Benazepril HCl (Lotensin) 20 mg PO DAILY [facility] Stop: 06/19/19 08:59 Last Admin: 04/30/19 08:32 Dose: Not Given Cyanocobalamin (Vitamin B12) 1,000 mcg IM QMONTH [facility] Stop: 06/28/19 07:44 Last Admin: 04/29/19 08:20 Dose: 1,000 mcg Donepezil HCl (Aricept) 5 mg PO DAILY [facility] Stop: 06/25/19 08:59 Last Admin: 04/30/19 08:30 Dose: 5 mg Gabapentin (Neurontin) 300 mg PO BID [facility] Stop: 06/19/19 08:59 Last Admin: 04/30/19 08:29 Dose: 300 mg Lorazepam (Ativan) 1 mg PO Q4HR PRN; Protocol PRN Reason: Anxiety Stop: 06/18/19 19:57 Last Admin: 04/21/19 16:44 Dose: 1 mg Meclizine HCl (Antivert) 25 mg PO TID PRN PRN Reason: Dizziness Stop: 06/18/19 19:57 Last Admin: 04/28/19 16:31 Dose: 25 mg Memantine (Namenda) 5 mg PO BID [facility] Stop: 06/24/19 16:59 Last Admin: 04/30/19 08:30 Dose: 5 mg Quetiapine Fumarate (Seroquel) 25 mg PO HS LYNDSAY; Protocol Stop: 06/28/19 20:59 Last Admin: 04/29/19 21:17 Dose: 25 mg Zolpidem Tartrate (Ambien) 5 mg PO HS PRN PRN Reason: Insomnia Stop: 06/18/19 19:52 General: alert HEENT: NC/AT, PERRLA, EOMI Neck: Supple, No JVD, No thyromegaly, No LAD Lungs: CTAB Cardiovascular: RRR, Normal S1, Normal S2, with murmur Abdomen: soft, non-tender, thin, non-distended, positive bowel sound Extremities: excoriation Internal Medicine Assmt/Plan - Assessment Assessment: ASSESSMENT AND PLAN: Anemia, hypertension, pyuria, history of vertigo, history of hypercholesterolemia. - Plan Plan: PLAN: Continue the patient on current antihypertensive medication on a calcium shahida as well as angiotensin converting enzyme inhibitor. Continue on low sodium diet. 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 Pt is currently eating an estimated 72% melas x3 days per Meal/ Nutrition Activity Record. HT: 52 WT: 116 LB (52.73 kg) BMI: 21.22 (Normal) GI: WNL, flat, soft, non- tender BM: 04/24 x1 I/O: 120/Not Noted Skin: WNL, intact Wilian: 21 Diet Order: Regular Estimated Energy Needs: ( Geriatric, CBW) 5805-5812 kcals (25-30 kcals/ kg) 53-63g Pro (1.0-1.2 g/kg) 6500-7323 ml (25-30 ml/kg) Pt is eating 72% of meals Per Meal/Nutrition Activity Record . Dietary is currently providing an estimated 2900 kcals and 130 gm Pro, per Pt PO intake this is providing an estimated 2088 kcals and 94gm Pro to meet 100+% kcal and 100+% Pro needs. Current Diet Order/ Nutrition Support Regular Pertinent Medications Antivert (PRN) Pertinent Labs 04/19: Hgb/Hct 11.4/32.7 Nutritional Hx/Data Height 1.57 m Height (Calculated Centimeters) 157.5 Current Weight (lbs) 52.617 kg Weight (Calculated Kilograms) 52.6 Weight (Calculated Grams) 59688.7 [place] Body Weight 110 % [place] Body Weight 105 Body Mass Index (BMI) 21.2 Weight Status Approriate GI Symptoms GI Symptoms None Last BM 04/24 x1 Skin Integrity/Comment: Skin: WNL, intact Wilian: 21 Current %PO Fair (50-74%) Estimated Nutritional Goals BEE in Kcals: Using Current wt Calories/Kcals/Kg 25-30 Kcals Calculated 7617-7658 Protein: Using Current wt Protein g/k.0-1.2 Protein Calculated 53-63 Fluid: ml 3373-1307 ml (25-30 ml/kg) Nutritional Problem No current Nutrition Prob Problem No nutrition diagnosis at this time. Etiology n/a Signs/Symptoms: n/a Malnutrition Related to Morbid Obesity Malnutrition related to morbid obesity No Intervention/Recommendation Comments Continue with Regular diet as ordered. Expected Outcomes/Goals Expected Outcomes/Goals 1. PO intake to continue to meet 75% of nutritional needs. 2. Monitor PO intake, wt, nutrition related labs, and skin integrity. 3. F/U as low risk in 7 days, 05/02
--- NOTE | 2019-05-01 02:44 | Progress Notes ---
DATE: 04/30/2019 PSYCHIATRIC PROGRESS NOTE SUBJECTIVE: Staff was spoken to. The patient is interviewed. Mood is noted to be irritable. Affect is constricted. Insight and judgment at this time are noted to be still impaired. Impulse control is noted to be limited. The patient has paranoia, but denies any command hallucinations. No aggressive behavior is noted today. manager latin has been trying to work with the patient's daughter in finding a placement that is going to be more secure. ASSESSMENT: The patient is still paranoid and demented. PLAN: To continue the patient with the supportive therapy and await for placement. JOB# [id number]
--- NOTE | 2019-05-01 12:13 | Internal Medicine Prog Note ---
Internal Medicine Subjective - Subjective Patient seen and examined:: with staff, chart reviewed Patient is:: awake, verbal, interactive, ambulating Per staff patient has:: no adverse event, no episodes of fall, poor appetite, tolerating meds Internal Medicine Objective - Results Result Diagrams: 04/19/19 16:20 04/19/19 16:20 Recent Labs: Laboratory Last Values WBC 7.9 Th/cmm (4.8-10.8) 04/19/19 16:20 RBC 3.66 Mil/cmm (3.80-5.20) L 04/19/19 16:20 Hgb 11.4 gm/dL (12-16) L 04/19/19 16:20 Hct 32.7 % (41.0-60) L 04/19/19 16:20 MCV 89.5 fl (81-100) 04/19/19 16:20 MCH 31.2 pg (27.0-31.0) H 04/19/19 16:20 MCHC Differential 34.9 pg (28.0-36.0) 04/19/19 16:20 RDW 12.2 % (11.5-20.0) 04/19/19 16:20 Plt Count 317 Th/cmm (150-400) 04/19/19 16:20 MPV 8.0 fl 04/19/19 16:20 Neutrophils % 63.1 % (40.0-80.0) 04/19/19 16:20 Lymphocytes % 27.8 % (20.0-50.0) 04/19/19 16:20 Monocytes % 6.8 % (2.0-10.0) 04/19/19 16:20 Eosinophils % 1.7 % (0.0-5.0) 04/19/19 16:20 Basophils % 0.6 % (0.0-2.0) 04/19/19 16:20 Sodium 136 mEq/L (136-145) 04/19/19 16:20 Potassium 4.1 mEq/L (3.5-5.1) 04/19/19 16:20 Chloride 104 mEq/L (98-107) 04/19/19 16:20 Carbon Dioxide 23.8 mEq/L (21.0-31.0) 04/19/19 16:20 Anion Gap 12.3 (7.0-16.0) 04/19/19 16:20 BUN 19 mg/dL (7-25) 04/19/19 16:20 Creatinine 0.9 mg/dL (0.6-1.2) 04/19/19 16:20 Est GFR ( Amer) TNP 04/19/19 16:20 Est GFR (Non-Af Amer) TNP 04/19/19 16:20 BUN/Creatinine Ratio 21.1 04/19/19 16:20 Glucose 96 mg/dL (70-105) 04/19/19 16:20 Calcium 9.0 mg/dL (8.6-10.3) 04/19/19 16:20 Total Bilirubin 0.3 mg/dL (0.3-1.0) 04/19/19 16:20 AST 17 U/L (13-39) 04/19/19 16:20 ALT 9 U/L (7-52) 04/19/19 16:20 Alkaline Phosphatase 56 U/L (34-104) 04/19/19 16:20 Total Protein 7.3 gm/dL (6.0-8.3) 04/19/19 16:20 Albumin 4.0 gm/dL (3.7-5.3) 04/19/19 16:20 Globulin 3.3 gm/dL 04/19/19 16:20 Albumin/Globulin Ratio 1.2 (1.0-1.8) 04/19/19 16:20 Triglycerides 100 mg/dL (<150) 04/19/19 16:20 Cholesterol 188 mg/dL (<200) 04/19/19 16:20 LDL Cholesterol Direct 135 mg/dL (75-193) 04/19/19 16:20 HDL Cholesterol 37 mg/dL (23-92) 04/19/19 16:20 TSH 1.29 uIU/ml (0.34-5.60) 04/19/19 16:20 Urine Source CLEAN C 04/19/19 16:15 Urine Color YELLOW 04/19/19 16:15 Urine Clarity HAZY (CLEAR) 04/19/19 16:15 Urine pH 6.0 (4.6 - 8.0) 04/19/19 16:15 Ur Specific [place] 1.015 (1.005-1.030) 04/19/19 16:15 Urine Protein NEGATIVE mg/dL (NEGATIVE) 04/19/19 16:15 Urine Glucose (UA) NEGATIVE mg/dL (NEGATIVE) 04/19/19 16:15 Urine Ketones NEGATIVE mg/dL (NEGATIVE) 04/19/19 16:15 Urine Blood TRACE (NEGATIVE) 04/19/19 16:15 Urine Nitrate NEGATIVE (NEGATIVE) 04/19/19 16:15 Urine Bilirubin NEGATIVE (NEGATIVE) 04/19/19 16:15 Urine Urobilinogen 0.2 E.U./dL (0.2 - 1.0) 04/19/19 16:15 Ur Leukocyte Esterase SMALL (NEGATIVE) H 04/19/19 16:15 Urine RBC 2-5 /hpf (0-5) 04/19/19 16:15 Urine WBC 6-10 /hpf (0-5) H 04/19/19 16:15 Ur Epithelial Cells FEW /lpf (FEW) 04/19/19 16:15 Urine Bacteria FEW /hpf (NONE SEEN) 04/19/19 16:15 RPR NONREACTIVE (NONREACTIVE) 04/19/19 16:20 - Physical Exam Vitals and I&O: Vital Signs Temp 98.7 F 05/01/19 06:32 Pulse 65 05/01/19 08:10 Resp 19 05/01/19 06:32 BP 121/61 05/01/19 08:10 Pulse Ox 97 05/01/19 06:32 Intake & Output 04/30/19 05/01/19 05/01/19 18:59 06:59 18:59 Intake Total 900 240 Balance 900 240 Intake: Oral 900 240 Other: # Voids 3 3 # Bowel Movements 1 0 Active Medications: Current Medications Amlodipine Besylate (Norvasc) 5 mg PO DAILY LYNDSAY Stop: 06/19/19 08:59 Last Admin: 05/01/19 08:09 Dose: 5 mg Benazepril HCl (Lotensin) 20 mg PO DAILY LYNDSAY Stop: 06/19/19 08:59 Last Admin: 05/01/19 08:10 Dose: 20 mg Cyanocobalamin (Vitamin B12) 1,000 mcg IM QMONTH LYNDSAY Stop: 06/28/19 07:44 Last Admin: 04/29/19 08:20 Dose: 1,000 mcg Donepezil HCl (Aricept) 5 mg PO DAILY LYNDSAY Stop: 06/25/19 08:59 Last Admin: 05/01/19 08:10 Dose: 5 mg Gabapentin (Neurontin) 300 mg PO BID LYNDSAY Stop: 06/19/19 08:59 Last Admin: 05/01/19 08:11 Dose: 300 mg Lorazepam (Ativan) 1 mg PO Q4HR PRN; Protocol PRN Reason: Anxiety Stop: 06/18/19 19:57 Last Admin: 05/01/19 08:08 Dose: 1 mg Meclizine HCl (Antivert) 25 mg PO TID PRN PRN Reason: Dizziness Stop: 06/18/19 19:57 Last Admin: 05/01/19 08:09 Dose: 25 mg Memantine (Namenda) 5 mg PO BID LYNDSAY Stop: 06/24/19 16:59 Last Admin: 05/01/19 08:09 Dose: 5 mg Quetiapine Fumarate (Seroquel) 25 mg PO HS LYNDSAY; Protocol Stop: 06/28/19 20:59 Last Admin: 04/30/19 21:29 Dose: 25 mg Zolpidem Tartrate (Ambien) 5 mg PO HS PRN PRN Reason: Insomnia Stop: 06/18/19 19:52 General: alert HEENT: NC/AT, PERRLA, EOMI Neck: Supple, No JVD, No thyromegaly, No LAD Lungs: CTAB Cardiovascular: RRR, Normal S1, Normal S2, with murmur Abdomen: soft, non-tender, thin, non-distended, positive bowel sound Extremities: excoriation Internal Medicine Assmt/Plan - Assessment Assessment: ASSESSMENT AND PLAN: Anemia, hypertension, pyuria, history of vertigo, history of hypercholesterolemia. - Plan Plan: PLAN: Continue the patient on current antihypertensive medication on a calcium shahida as well as angiotensin converting enzyme inhibitor. Continue on low sodium diet. 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 Pt is currently eating an estimated 72% melas x3 days per Meal/ Nutrition Activity Record. HT: 52 WT: 116 LB (52.73 kg) BMI: 21.22 (Normal) GI: WNL, flat, soft, non- tender BM: 04/24 x1 I/O: 120/Not Noted Skin: WNL, intact Wilian: 21 Diet Order: Regular Estimated Energy Needs: ( Geriatric, CBW) 7901-5049 kcals (25-30 kcals/ kg) 53-63g Pro (1.0-1.2 g/kg) 8280-8378 ml (25-30 ml/kg) Pt is eating 72% of meals Per Meal/Nutrition Activity Record . Dietary is currently providing an estimated 2900 kcals and 130 gm Pro, per Pt PO intake this is providing an estimated 2088 kcals and 94gm Pro to meet 100+% kcal and 100+% Pro needs. Current Diet Order/ Nutrition Support Regular Pertinent Medications Antivert (PRN) Pertinent Labs 04/19: Hgb/Hct 11.4/32.7 Nutritional Hx/Data Height 1.57 m Height (Calculated Centimeters) 157.5 Current Weight (lbs) 52.617 kg Weight (Calculated Kilograms) 52.6 Weight (Calculated Grams) 90382.7 [place] Body Weight 110 % [place] Body Weight 105 Body Mass Index (BMI) 21.2 Weight Status Approriate GI Symptoms GI Symptoms None Last BM 04/24 x1 Skin Integrity/Comment: Skin: WNL, intact Wilian: 21 Current %PO Fair (50-74%) Estimated Nutritional Goals BEE in Kcals: Using Current wt Calories/Kcals/Kg 25-30 Kcals Calculated 6566-0178 Protein: Using Current wt Protein g/k.0-1.2 Protein Calculated 53-63 Fluid: ml 7692-5068 ml (25-30 ml/kg) Nutritional Problem No current Nutrition Prob Problem No nutrition diagnosis at this time. Etiology n/a Signs/Symptoms: n/a Malnutrition Related to Morbid Obesity Malnutrition related to morbid obesity No Intervention/Recommendation Comments Continue with Regular diet as ordered. Expected Outcomes/Goals Expected Outcomes/Goals 1. PO intake to continue to meet 75% of nutritional needs. 2. Monitor PO intake, wt, nutrition related labs, and skin integrity. 3. F/U as low risk in 7 days, 05/02
--- NOTE | 2019-05-02 03:56 | Progress Notes ---
DATE: 05/01/2019 PSYCHIATRIC PROGRESS NOTE SUBJECTIVE: Staff was spoken to. The patient is interviewed. Mood is noted to be irritable. Affect is constricted. Insight and judgment at this time are noted to be still impaired. Impulse control is noted to be limited. The patient is stating that she ____ for being in here. The patient is accepted at ____, but they did say that they do not have any bed until tomorrow. The patient's coping skills are noted to be still poor, but impulsivity is getting under control. Paranoia is noted. The patient has been able to tolerate the Seroquel. PLAN: To continue the patient with the current medications and followup. [facility]# [id number]
--- NOTE | 2019-05-02 14:38 | Internal Medicine Prog Note ---
Internal Medicine Subjective - Subjective Patient seen and examined:: with staff, chart reviewed, other (seen at 10 am. late entry) Patient is:: awake, verbal, interactive, ambulating Per staff patient has:: no adverse event, no episodes of fall, poor appetite, tolerating meds Internal Medicine Objective - Results Result Diagrams: 04/19/19 16:20 04/19/19 16:20 Recent Labs: Laboratory Last Values WBC 7.9 Th/cmm (4.8-10.8) 04/19/19 16:20 RBC 3.66 Mil/cmm (3.80-5.20) L 04/19/19 16:20 Hgb 11.4 gm/dL (12-16) L 04/19/19 16:20 Hct 32.7 % (41.0-60) L 04/19/19 16:20 MCV 89.5 fl (81-100) 04/19/19 16:20 MCH 31.2 pg (27.0-31.0) H 04/19/19 16:20 MCHC Differential 34.9 pg (28.0-36.0) 04/19/19 16:20 RDW 12.2 % (11.5-20.0) 04/19/19 16:20 Plt Count 317 Th/cmm (150-400) 04/19/19 16:20 MPV 8.0 fl 04/19/19 16:20 Neutrophils % 63.1 % (40.0-80.0) 04/19/19 16:20 Lymphocytes % 27.8 % (20.0-50.0) 04/19/19 16:20 Monocytes % 6.8 % (2.0-10.0) 04/19/19 16:20 Eosinophils % 1.7 % (0.0-5.0) 04/19/19 16:20 Basophils % 0.6 % (0.0-2.0) 04/19/19 16:20 Sodium 136 mEq/L (136-145) 04/19/19 16:20 Potassium 4.1 mEq/L (3.5-5.1) 04/19/19 16:20 Chloride 104 mEq/L (98-107) 04/19/19 16:20 Carbon Dioxide 23.8 mEq/L (21.0-31.0) 04/19/19 16:20 Anion Gap 12.3 (7.0-16.0) 04/19/19 16:20 BUN 19 mg/dL (7-25) 04/19/19 16:20 Creatinine 0.9 mg/dL (0.6-1.2) 04/19/19 16:20 Est GFR ( Amer) TNP 04/19/19 16:20 Est GFR (Non-Af Amer) TNP 04/19/19 16:20 BUN/Creatinine Ratio 21.1 04/19/19 16:20 Glucose 96 mg/dL (70-105) 04/19/19 16:20 Calcium 9.0 mg/dL (8.6-10.3) 04/19/19 16:20 Total Bilirubin 0.3 mg/dL (0.3-1.0) 04/19/19 16:20 AST 17 U/L (13-39) 04/19/19 16:20 ALT 9 U/L (7-52) 04/19/19 16:20 Alkaline Phosphatase 56 U/L (34-104) 04/19/19 16:20 Total Protein 7.3 gm/dL (6.0-8.3) 04/19/19 16:20 Albumin 4.0 gm/dL (3.7-5.3) 04/19/19 16:20 Globulin 3.3 gm/dL 04/19/19 16:20 Albumin/Globulin Ratio 1.2 (1.0-1.8) 04/19/19 16:20 Triglycerides 100 mg/dL (<150) 04/19/19 16:20 Cholesterol 188 mg/dL (<200) 04/19/19 16:20 LDL Cholesterol Direct 135 mg/dL (75-193) 04/19/19 16:20 HDL Cholesterol 37 mg/dL (23-92) 04/19/19 16:20 TSH 1.29 uIU/ml (0.34-5.60) 04/19/19 16:20 Urine Source CLEAN C 04/19/19 16:15 Urine Color YELLOW 04/19/19 16:15 Urine Clarity HAZY (CLEAR) 04/19/19 16:15 Urine pH 6.0 (4.6 - 8.0) 04/19/19 16:15 Ur Specific [place] 1.015 (1.005-1.030) 04/19/19 16:15 Urine Protein NEGATIVE mg/dL (NEGATIVE) 04/19/19 16:15 Urine Glucose (UA) NEGATIVE mg/dL (NEGATIVE) 04/19/19 16:15 Urine Ketones NEGATIVE mg/dL (NEGATIVE) 04/19/19 16:15 Urine Blood TRACE (NEGATIVE) 04/19/19 16:15 Urine Nitrate NEGATIVE (NEGATIVE) 04/19/19 16:15 Urine Bilirubin NEGATIVE (NEGATIVE) 04/19/19 16:15 Urine Urobilinogen 0.2 E.U./dL (0.2 - 1.0) 04/19/19 16:15 Ur Leukocyte Esterase SMALL (NEGATIVE) H 04/19/19 16:15 Urine RBC 2-5 /hpf (0-5) 04/19/19 16:15 Urine WBC 6-10 /hpf (0-5) H 04/19/19 16:15 Ur Epithelial Cells FEW /lpf (FEW) 04/19/19 16:15 Urine Bacteria FEW /hpf (NONE SEEN) 04/19/19 16:15 RPR NONREACTIVE (NONREACTIVE) 04/19/19 16:20 - Physical Exam Vitals and I&O: Vital Signs Temp 98.4 F 05/02/19 10:20 Pulse 72 05/02/19 10:20 Resp 17 05/02/19 10:20 BP 134/72 05/02/19 10:20 Pulse Ox 97 05/02/19 10:20 Intake & Output 05/01/19 05/02/19 05/02/19 18:59 06:59 18:59 Intake Total 800 240 Balance 800 240 Intake: Oral 800 240 Other: # Voids 3 3 # Bowel Movements 1 0 General: alert HEENT: NC/AT, PERRLA, EOMI Neck: Supple, No JVD, No thyromegaly, No LAD Lungs: CTAB Cardiovascular: RRR, Normal S1, Normal S2, with murmur Abdomen: soft, non-tender, thin, non-distended, positive bowel sound Extremities: excoriation Internal Medicine Assmt/Plan - Assessment Assessment: ASSESSMENT AND PLAN: Anemia, hypertension, pyuria, history of vertigo, history of hypercholesterolemia. - Plan Plan: PLAN: Continue the patient on current antihypertensive medication on a calcium shahida as well as angiotensin converting enzyme inhibitor. Continue on low sodium diet. Nutritional Asmnt/Malnutr-PDOC - Dietary Evaluation Malnutrition Findings (Please click <Entered> for more info): Nutritional Asmnt/Malnutrition Start: 04/25/19 12: 43 Text: Status: Complete Freq: Protocol: Document 04/25/19 12:43 ADAM (Rec: 04/25/19 12:54 ADAM [email or web address]) Nutritional Asmnt/Malnutrition Patient General Information Nutritional Screening Low Risk Diagnosis Psychosis NOS Pertinent Medical Hx/Surgical Hx HTN, hypercholesterolemia, vertigo Subjective Information Pt is a 52-year-old female admitted on 04/19 d/t psychosis NOS, medical clearance for [facility]. Pt is currently eating an estimated 72% melas x3 days per Meal/ Nutrition Activity Record. HT: 52 WT: 116 LB (52.73 kg) BMI: 21.22 (Normal) GI: WNL, flat, soft, non- tender BM: 04/24 x1 I/O: 120/Not Noted Skin: WNL, intact Wilian: 21 Diet Order: Regular Estimated Energy Needs: ( Geriatric, CBW) 9777-2687 kcals (25-30 kcals/ kg) 53-63g Pro (1.0-1.2 g/kg) 9737-2397 ml (25-30 ml/kg) Pt is eating 72% of meals Per Meal/Nutrition Activity Record . Dietary is currently providing an estimated 2900 kcals and 130 gm Pro, per Pt PO intake this is providing an estimated 2088 kcals and 94gm Pro to meet 100+% kcal and 100+% Pro needs. Current Diet Order/ Nutrition Support Regular Pertinent Medications Antivert (PRN) Pertinent Labs 04/19: Hgb/Hct 11.4/32.7 Nutritional Hx/Data Height 1.57 m Height (Calculated Centimeters) 157.5 Current Weight (lbs) 52.617 kg Weight (Calculated Kilograms) 52.6 Weight (Calculated Grams) 85645.7 [place] Body Weight 110 % [place] Body Weight 105 Body Mass Index (BMI) 21.2 Weight Status Approriate GI Symptoms GI Symptoms None Last BM 04/24 x1 Skin Integrity/Comment: Skin: WNL, intact Wilian: 21 Current %PO Fair (50-74%) Estimated Nutritional Goals BEE in Kcals: Using Current wt Calories/Kcals/Kg 25-30 Kcals Calculated 0322-1215 Protein: Using Current wt Protein g/k.0-1.2 Protein Calculated 53-63 Fluid: ml 4200-9907 ml (25-30 ml/kg) Nutritional Problem No current Nutrition Prob Problem No nutrition diagnosis at this time. Etiology n/a Signs/Symptoms: n/a Malnutrition Related to Morbid Obesity Malnutrition related to morbid obesity No Intervention/Recommendation Comments Continue with Regular diet as ordered. Expected Outcomes/Goals Expected Outcomes/Goals 1. PO intake to continue to meet 75% of nutritional needs. 2. Monitor PO intake, wt, nutrition related labs, and skin integrity. 3. F/U as low risk in 7 days, 05/02
--- NOTE | 2019-05-03 02:02 | Progress Notes ---
DATE: 05/02/2019 PSYCHIATRIC PROGRESS NOTE SUBJECTIVE: Staff was spoken to. The patient is interviewed. Mood is noted to be less irritable. Affect is appropriate. Not suicidal or homicidal. Insight and judgment are noted to be improving. Impulse control is noted to be fair. Coping skills are noted to be fair. No side effects to the medications are noted. ASSESSMENT: The patient is stabilizing. PLAN: To discharge the patient today for followup on an outpatient basis. [facility]# [id number]
== END 2019-05-02 11:45 | DRG 885 ==
LOC: ER 15:51 → EDBD 18:18 → GERO 18:18
PROVIDERS: ADMIT Psychiatry & Neurology Psychiatry; ATTEND Psychiatry & Neurology Psychiatry
DX: F29 Unspecified psychosis not due to a substance or known physiological condition (principal); F03.91 Unspecified dementia, unspecified severity, with behavioral disturbance; N39.0 Urinary tract infection, site not specified; I10 Essential (primary) hypertension; E78.00 Pure hypercholesterolemia, unspecified; D64.9 Anemia, unspecified
CPT/HCPCS: 36415-UA; 80053-TC; 80061-TC; 81001-TC; 83036-90; 84443-TC; 85025-TC; 86592-TC; 93005; G0410; J3420